=== PATIENT | male | born 1960 | race Caucasian/White ===

== ENCOUNTER 2019-07-16 05:59 | Outpatient (RCR) | payer BC, SELFPAY | END 2019-07-28 00:01 | LOC: ONCMED 05:59 | PROVIDERS: Family Provider Nurse Practitioner Family; Visit Provider Nurse Practitioner | DX: Z51.11 Encounter for antineoplastic chemotherapy (principal); Z51.12 Encounter for antineoplastic immunotherapy; C83.31 Diffuse large B-cell lymphoma, lymph nodes of head, face, and neck; D70.1 Agranulocytosis secondary to cancer chemotherapy; T45.1X5A Adverse effect of antineoplastic and immunosuppressive drugs, initial encounter; I10 Essential (primary) hypertension; M19.90 Unspecified osteoarthritis, unspecified site; Z87.442 Personal history of urinary calculi; F17.210 Nicotine dependence, cigarettes, uncomplicated; K21.9 Gastro-esophageal reflux disease without esophagitis; Z86.718 Personal history of other venous thrombosis and embolism; Z98.1 Arthrodesis status; Z79.01 Long term (current) use of anticoagulants; Z79.52 Long term (current) use of systemic steroids | CPT/HCPCS: 96367; 96368; 96372; 96411; 96413; 96415; 96417; 99214; J1100; J1453; J1642; J2469; J2505; J7040 ×2; J9000; J9070 ×2; J9312 ×2; J9370 ==

== ENCOUNTER 2019-08-14 06:07 | Day surgery (SDC) | payer BC, SELFPAY ==
[2019-08-14 06:38] VITALS: BMI 31.4
--- NOTE | 2019-08-14 06:48 | ANES.PREANES ---
Pre-Anesthetic Assessment Pre-Anesthetic Assessment: Height/Weight: Height 1.68 m Weight 88.451 kg Preop Diagnosis: Right paratracheal mass Proposed Procedure: Operation Date: 08/14/19 07:00 Proposed Procedures p Bronchoscopy(Not Applicable) - Blayne Valdez MD s Ebus(Not Applicable) - Blayne Valdez MD Last intake: Intake Last Liquid Date 08/17/19 Last Liquid Time 21:00 Last Solid Date 08/13/19 Last Solid Time 21:00 Social: Packs per day: 2 ppd44 years Comment: quit 1 week Exam: Pre-Anes Outpt Exam: alert, oriented x 3, clear to auscultation bilaterally and regular rate & rhythm Pulmonary: Pulmonary: COPD CV/HEM: CV/HEM: HTN Comments: rx'd x 10 years GI: GI: GERD Comments: well controlled Anesthetic Plan: ASA status: III Anesthesia: General PFS Anesthesia PFSH: Medical History (Updated 08/06/19 @ 11:33 by Blayne Valdez MD) KRISTIN (acute kidney injury) (Acute) Atrioventricular block, first degree (Acute) Essential (primary) hypertension (Acute) Lymphadenopathy (Acute) Lymphoma (Acute) Neck mass (Acute) Presence of other vascular implants and grafts (Acute) Port-A-Cath Surgical History (Updated 08/06/19 @ 11:33 by Blayne Valdez MD) H/O circumcision (Acute) H/O hand surgery (Acute) H/O neck surgery (Acute) H/O oral surgery (Acute) History of back surgery (Acute) Hx of colonoscopy (Acute) Social History Smoking and tobacco status: current every day smoker cigarettes Years cigarettes smoked: 40 Alcohol intake: never Lives independently: Yes Household members: spouse Marital status: Current occupational status: retired History of recent travel: No Current gender identity: Male Agree to transfusion: Yes Data Anesthesia Cardiac Studies: No Data to Display
[2019-08-14 06:56] VITALS: BP 141/80; PULSE 67; RESP 18; TEMP 36.6; O2SAT 99
[2019-08-14] MEDS: sodium chloride 0.9% 1,000 ML 30 ML IV (07:07)
--- NOTE | 2019-08-14 07:11 | PM.HPUD ---
H&P update H&P Update: DATE OF SURGERY/PROCEDURE: 08/14/19 DATE H&P PERFORMED: 08/14/19 PLANNED PROCEDURE: Operation Date: 08/14/19 07:00 Proposed Procedures p Bronchoscopy(Not Applicable) - Blayne Valdez MD s Ebus(Not Applicable) - Blayne Valdez MD Full H&P HPI: PLANNED PROCEDURE: Bronchoscopy with inspection of airway. Endobronchial ultrasound-guided transbronchial needle aspiration of lymph nodes. HPI: I have reviewed the HPI. There is no significant change since he was last seen in office. Medications/Allergies: Current Medications: Current Medications Generic Name Dose Route Start Last Admin Trade Name Freq PRN Reason Stop Dose Admin Sodium Chloride 1,000 mls @ 30 ml s/hr 08/14/19 07:00 08/14/19 07:07 Sodium Chloride 0.9% IV 08/15/19 06:59 30 mls/hr .Q24H SWATHI Administration Perinent History: Medical/Surgical History: Medical History (Updated 08/06/19 @ 11:33 by Blayne Valdez MD) KRISTIN (acute kidney injury) (Acute) Atrioventricular block, first degree (Acute) Essential (primary) hypertension (Acute) Lymphadenopathy (Acute) Lymphoma (Acute) Neck mass (Acute) Presence of other vascular implants and grafts (Acute) Port-A-Cath Family History: Family History (Updated 08/06/19 @ 11:02 by Juju So LPN) Father Cancer Social History: Social History Smoking and tobacco status: current every day smoker cigarettes Years cigarettes smoked: 40 Alcohol intake: never Lives independently: Yes Household members: spouse Marital status: Current occupational status: retired History of recent travel: No Current gender identity: Male Agree to transfusion: Yes A&P Assessment and plan (1) Lymphadenopathy: The patient has 4R lymphadenopathy with hypermetabolic activity on PET scan. The plan is to do an endobronchial ultrasound-guided transbronchial needle aspiration of the lymph node. Status: Acute Code(s): R59.1 - Generalized enlarged lymph nodes
[2019-08-14] MEDS: lidocaine 1% INJ 20 mL XX (07:40)
[2019-08-14] MEDS: EPINEPHrine 1 mg/mL INJ XX (07:50)
--- NOTE | 2019-08-14 08:15 | PM.OP ---
Operative Report Date of procedure: 08/14/19 Pre-op Diagnosis: Right paratracheal mass Procedure: Name of the procedure: Bronchoscopy with inspection of the airway, endobronchial biopsy, endobronchial ultrasound-guided transbronchial needle aspiration of lymph nodes. Indication: Right paratracheal mass with hypermetabolic PET scan Anesthesia: General anesthesia Description of the procedure: The patient was brought to the OR and was intubated for general anesthesia. Timeout was performed. The bronchoscope was introduced through the ET tube. The lashanda, right and left mainstem bronchi anesthetized with 1% lidocaine. The lashanda appeared sharp. In a systematic way then the bilateral lung airways were examined. The airways of the left upper lobe, lingula and left lower lobe appeared normal. The right upper lobe airway was normal, right lower lobe airways were normal. There was an smooth circular endobronchial lesion in the medial segment of the right middle lobe. 2 endobronchial biopsies were performed. The endobronchial ultrasound was then advanced through the ET tube. The 4R station was identified. 7 samples are obtained from the 4 nuclear station using endobronchial ultrasound-guided transbronchial needle aspiration. Samples: 1. The endobronchial lesion was sent for histopathology. 2. The transbronchial needle aspiration was sent for cytology and fungal and mycobacterial culture. Complication: None Follow-up: The patient will follow-up with me in 2 weeks time. He already has an appointment.
[2019-08-14 08:19] VITALS: BP 129/85; PULSE 89; RESP 16; TEMP 36.3; O2SAT 100
[2019-08-14 08:25] VITALS: BP 138/83; PULSE 90; RESP 16; O2SAT 100
[2019-08-14 08:30] VITALS: BP 125/79; PULSE 86; RESP 18; TEMP 36.4; O2SAT 96
[2019-08-14 09:04] VITALS: BP 125/79; PULSE 72; RESP 18; O2SAT 97
== END 2019-08-14 09:15 | disposition home or self-care (01) ==
PROVIDERS: Family Provider Nurse Practitioner Family; PCP Nurse Practitioner Family; Visit Provider Internal Medicine Critical Care Medicine
PROC: 0BJ08ZZ Inspection of Tracheobronchial Tree, Via Natural or Artificial Opening Endoscopic (ICD-10-PCS; CPT 31622; principal; 2019-08-14 07:00)
PROC: BB4BZZZ Ultrasonography of Pleura (ICD-10-PCS; CPT 31625; 2019-08-14 07:00)
DX: R91.8 Other nonspecific abnormal finding of lung field (principal); R59.1 Generalized enlarged lymph nodes; J44.9 Chronic obstructive pulmonary disease, unspecified; I10 Essential (primary) hypertension; K21.9 Gastro-esophageal reflux disease without esophagitis; F17.210 Nicotine dependence, cigarettes, uncomplicated
CPT/HCPCS: 31625; 12345; 88112; 88305; 96365; J0171; J2001; J2405; J2704; J2710; J3490; J7030

== ENCOUNTER 2019-08-21 09:16 | Outpatient (CLI) | payer BC, SELFPAY ==
--- NOTE | 2019-08-23 10:27 | ONC FU_ITS ---
Dr. Mendoza Patient Follow-Up Note Patient: Laith Cline Unit #: [id number]: [id number] Dicatated By: Roger Mendoza M.D.Date of Visit:Aug 21, 2019 Onc Med Follow-up/Prog Note Chief Complaint: Lymphoma. History of Present Illness: This is a 58 year-old man with diffuse large B-cell lymphoma, non-germinal center phenotype, stage IIIS by clinical evaluation. He had presented with enlarging masses on both sides of the neck. 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 He was referred to Dr. Panchal. He had nondiagnostic FNA and core needle biopsies. PET/CT on 02/07/2019 showed extensive hypermetabolic head and neck adenopathy with maximum SUV 27.7, felt to likely represent lymphoma. Also noted was hypermetabolic adenoid and tonsillar tissue, consistent with lymphoma this involvement, and a splenic lesion consistent with extranodal disease. He underwent incisional biopsy of the right cervical lymph node on 03/03/2019. Pathology was consistent with diffuse large B-cell lymphoma, non-germinal center phenotype. By immunoperoxidase the lymphoma cells were positive for CD20, CD5, BL 6, MUM 1, BCL-2. MYC was positive at 20-30%, and CARLA was equivocal with very rare positive cells. They were negative for CD3, CD10, cyclin D1, and Sox 11. With those findings he was recommended not undergo treatment with 6 cycles of R-CHOP chemotherapy. His other medical illnesses include hypertension, degenerative disease of the spine, and nephrolithiasis. He also was previously treated for Sullivan spotted fever. He has a history of smoking for 40 years, previously up to 2 1/2 packs of cigarettes daily. He had cut down to 1/2 pack per day. INTERIM HISTORY: He began treatment with R-CHOP chemotherapy, cycle 1 day 1 on 03/19/2019. He was given first cycle prophylaxis with Neulasta. He developed acute onset of lower extremity edema immediately following that treatment, but that subsequently resolved, and he otherwise tolerated it very well. He was seen for a follow-up visit on 04/09/2019. At that point he appeared to have a very good clinical response, and he continued with his 2nd cycle of treatment. On 04/23/2019 he presented with significant swelling in the left arm, and he was confirmed to have a Port-A-Cath related deep vein thrombosis at the left jugular/subclavian junction. He began anticoagulation with apixaban, and he underwent removal of the Port-A-Cath. He continued the apixaban following the procedure. Restaging PET/CT on 04/25/2019 showed resolution of hypermetabolic adenopathy in the head and neck. Residual nodes were noted to be subcentimeter in size and FDG negative. The splenic lesion seen on the prior study was noted to demonstrate activity no greater than mediastinal background. It measured 3.3 x 2.5 cm. Bilateral tonsillar activity was noted to have normalized. 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 He then had a short treatment delay while he underwent replacement of the Port-A-Cath. He was able to continue with cycle 3 of R-CHOP on 05/07/2019, with cycle 4 on 06/04/2019, with cycle 5 on 06/24/2019, and with cycle 6 on 07/16/2019. Restaging PET/CT showed increased SUV and a right paratracheal lymph node to 7.8 compared to 4.9 on the previous study. Residual lymphoma was not excluded. There were no other areas of abnormal uptake on that study. With that finding he was referred to Dr. Valdez. On 08/04/2019 he underwent bronchoscopy/EBUS with FNA biopsy of the right paratracheal lymph node. Also noted at that time was a smooth circular endobronchial lesion in the medial segment of the right middle lobe. That lesion was evaluated with endobronchial biopsy. He is seen today to discuss the biopsy results. We do have the pathology report available on the endobronchial biopsy, and that it showed benign respiratory mucosa and cartilage with no malignancy identified. The FNA biopsy was sent up to [facility], and that result is not yet available. Medications: dilTIAZem HCl 1 Tablet (of 120 mg) Oral daily, Eliquis 1 Tablet (of 5 mg) Oral b.i.d., levoFLOXacin 1 Tablet (of 500 mg) Oral daily for 5 days PRN, LORazepam 1 Tablet (of 0.5 mg) Oral t.i.d. PRN, Pantoprazole Sodium 1 Tablet (of 40 mg) Tablet, enteric coated Oral daily, Prochlorperazine Maleate 1 Tablet (of 10 mg) Oral q 4 hours PRN Allergies: No Known Allergies. Vital Signs: Performed on Aug 21, 2019 09:28 Height - 65.00 in Weight - 196.6 lbs (HIGH) BSA - 1.96 sq.m BMI - 32.72 (HIGH) Temperature - 98.3 F (LOW) Pulse - 88 /min Respiration - 20 /min BP - 111/84 mm(hg) O2 Sat - 97 % Pain - 0 Lab/Imaging: Test performed on Aug 11, 2019 08:48 Glucose 109 mg/dL BUN 14 mg/dL Creatinine 1.19 mg/dL Cr Clearance (Est) 79.96 mL/min Sodium 137 mmol/L Potassium 3.9 mmol/L Chloride 101 mmol/L CO2 24 mmol/L Calcium 9.6 mg/dL Protein, Total 7.4 g/dL Albumin 4.1 g/dL Bilirubin, Total 0.3 mg/dL Alkaline Phosphatase 77 IU/L AST (SGOT) 18 IU/L ALT (SGPT) 16 IU/L WBC 6.1 10^9/L RBC 4.19 10^12/L HGB 12.9 g/dL HCT 39.3 % MCV 93.8 fl MCH 30.8 pg MCHC 32.8 g/dL RDW 15.4 % Platelet Count 276 10^9/L MPV 8.9 fL Neutrophils (Gran) 4.15 10^9/L Lymphocytes 0.95 10^9/L Monocytes 0.85 10^9/L Eosinophils 0.07 10^9/L Basophils 0.02 10^9/L Manual Lymphocytes 16 % Manual Monocytes 14 % Manual Eosinophils 1 % Manual Basophils 0 % Impression: 1. Patient with diffuse large B-cell lymphoma, non-germinal center phenotype. By clinical evaluation, his disease appears to be stage IIIS. 2. He was diagnosed with Sullivan spotted fever in October or November 2018. His other medical illnesses include: 3. Hypertension, but currently with episodes of orthostatic hypotension. 4. GERD. 5. History of nephrolithiasis. He underwent treatment with 6 cycles of R-CHOP chemotherapy from 03/19/2019 through 07/16/2019. His treatment was complicated by a Port-A-Cath related thrombosis involving the left subclavian/internal jugular veins during cycle 2. He began on anticoagulation with apixaban following removal of the Port-A-Cath. His restaging PET/CT showed findings which appeared consistent with complete response. He had a short treatment delay while he underwent replacement of his Port-A-Cath. His treatment was otherwise complicated by neutropenia and fatigue. Overall, though, he tolerated it well. His restaging PET/CT on 07/25/2019 showed increased SUV to 7.8 compared to 4.9 on the previous study. Active lymphoma was not excluded. There were no other areas of abnormal uptake. He underwent bronchoscopy/EBUS with FNA of the right paratracheal lymph node on 08/14/2019. The pathology is not yet available. Plan: At this point he appears to be doing well clinically. The available pathology results were reviewed with the patient and his , and we also reviewed the PET/CT findings and images. I will plan his further management when the pathology results from the FNA biopsy are available. If it is benign, he will just be followed on observation/expectant management. Signed By: Roger Mendoza M.D. <<Signature on File>>
== END 2019-08-21 09:17 | disposition home or self-care (01) ==
LOC: ONCMED 09:18
PROVIDERS: Family Provider Nurse Practitioner Family; PCP Nurse Practitioner Family; Visit Provider Internal Medicine Medical Oncology
DX: C83.31 Diffuse large B-cell lymphoma, lymph nodes of head, face, and neck (principal); I10 Essential (primary) hypertension; M19.90 Unspecified osteoarthritis, unspecified site; F17.210 Nicotine dependence, cigarettes, uncomplicated; I95.9 Hypotension, unspecified; K21.9 Gastro-esophageal reflux disease without esophagitis; Z79.01 Long term (current) use of anticoagulants; Z92.21 Personal history of antineoplastic chemotherapy; Z86.718 Personal history of other venous thrombosis and embolism; Z87.442 Personal history of urinary calculi
CPT/HCPCS: G0463

== ENCOUNTER 2019-09-24 09:47 | Outpatient (CLI) | payer BC, SELFPAY ==
[2019-09-24 10:10] VITALS: BP 134/90; PULSE 71; RESP 20; TEMP 36.7; O2SAT 97; BMI 34.0
== END 2019-09-24 09:48 | disposition home or self-care (01) ==
LOC: GILAB 09:51
PROVIDERS: Family Provider Nurse Practitioner Family; PCP Nurse Practitioner Family; Visit Provider Surgery
DX: R59.1 Generalized enlarged lymph nodes (principal)
CPT/HCPCS: 96368; J1642

== ENCOUNTER 2019-09-25 08:57 | Outpatient (CLI) | payer BC, SELFPAY ==
--- NOTE | 2019-09-25 09:06 | MM_ITS ---
WS: [id number] BILATERAL DIGITAL DIAGNOSTIC MAMMOGRAPHY WITH CAD CLINICAL INFORMATION: BREAST MASS COMPARISON: None. TECHNIQUE: Bilateral CC and MLO views. FINDINGS: Scattered fibroglandular densities bilaterally. Prominent subareolar breast tissue deep to the left a shante left. This is asymmetric compared to the right. Small amount of right subareolar breast tissue. U ltrasound is pending. ULTRASOUND BREAST LEFT TECHNIQUE: Ultrasound left breast focused area of concern. CLINICAL INFORMATION: BREAST MASS COMPARISON: None. FINDINGS: Ultrasound left breast. Right areola for comparison. Density subareolar breast tissue asymmetric more prominent on the left. Findings are most consistent with gynecomastia. No well-defined cystic or ami id lesions to target for biopsy. MM/[place] [id number] BI-RADS: 2-Benign FOLLOW UP: See Report Additional management of the palpable abnormality should be based on clinical g rounds.
== END 2019-09-25 08:58 | disposition home or self-care (01) ==
LOC: RADSHAW 08:57
PROVIDERS: Family Provider Nurse Practitioner Family; PCP Nurse Practitioner Family; Visit Provider Nurse Practitioner Family
DX: N63.42 Unspecified lump in left breast, subareolar (principal)
CPT/HCPCS: 76642; 77066

== ENCOUNTER 2019-10-20 07:55 | Outpatient (CLI) | payer BC, SELFPAY | END 2019-10-20 07:56 | disposition home or self-care (01) | LOC: ONCMED 07:56 | PROVIDERS: Family Provider Nurse Practitioner Family; PCP Nurse Practitioner Family; Visit Provider Internal Medicine Medical Oncology | DX: Z45.2 Encounter for adjustment and management of vascular access device (principal) | CPT/HCPCS: 96523 ==

== ENCOUNTER 2019-11-13 09:16 | Outpatient (CLI) | payer BC, SELFPAY | END 2019-11-13 09:17 | disposition home or self-care (01) | LOC: ONCMED 09:16 | PROVIDERS: Family Provider Nurse Practitioner Family; PCP Nurse Practitioner Family; Visit Provider Internal Medicine Medical Oncology | DX: Z45.2 Encounter for adjustment and management of vascular access device (principal) | CPT/HCPCS: 96523 ==

== ENCOUNTER 2019-12-01 08:24 | Outpatient (CLI) | payer BC, SELFPAY ==
--- NOTE | 2019-12-01 08:47 | CT_ITS ---
WS: [id number] CT NECK WITH CONTRAST HISTORY: LYMPHOMA TECHNIQUE: Contiguous 5 mm axial images are performed through the neck with intravenous contrast. Sag ittal and coronal reformats are also submitted. All CT scans at [facility] use at least o ne of these dose optimization techniques: automated exposure control; mA and/or kV adjustment per pat ient size (includes targeted exams where dose is matched to clinical indication); or iterative recons truction. CONTRAST: CONTRAST: Omnipaque 300; 95 mL IV. DLP: 2874.25 mGycm COMPARISON: 02/04/2019 and PET/CT 07/25/2019 Nasopharynx, oropharynx, hypopharynx and larynx are unremarkable. No soft tissue masses or abnormal e nhancement. Torus tubarius and fossa of Rosenmuller and parapharyngeal fat are normal. There are several small lymph nodes noted along the cervical chains, greatest at level IIb, IVb and V b. There are lymph nodes noted bilaterally in the soft tissues posterior to the sternocleidomastoid m uscles and the jugular veins. Lymph nodes all measure less than a centimeter. Although these lymph no lm are not significantly enlarged there are numerous and appear more prominent as compared to the PE T/CT of 07/25/2019. Smaller level IIa lymph node on the LEFT is 7 mm. Stable enhancing nodule in the RIGHT parotid gland is probably a benign adenoma or Jayce's tumor th is has been previously described. Prior cervical fusion at C5-C7. Visualized portions of the skull base demonstrate no abnormalities. Orbits and globes are within norm al limits. No soft tissue masses. Visualized paranasal sinuses and mastoid air cells are normal. Lung apices are clear. Calcified lymph nodes in the RIGHT paratracheal region. Recently described PET /CT positive lymph node measures 7 mm in the RIGHT paratracheal region. CT/CT neck w con* [id number] IMPRESSION: 1. Several small bilateral cervical chain lymph nodes as described above are a ll subcentimeter. These lymph nodes are more prominent as compared to the PET/C T from 07/25/2019. Early recurrence lymphoma should be considered. No significa ntly enlarged lymph nodes. 2. Postsurgical clips in the RIGHT neck probably from prior lymph node removal .
[2019-12-01] MEDS: iohexol 300 mg/mL 100 mL Btl IV (09:20)
[2019-12-01 10:02] LABS: Basophils % 0.1 %; Eosinophils # 0.1 10^3/uL (0.0-0.8); Eosinophils % 1.3 %; Hematocrit 41.5 % (42.0-52.0); Hemoglobin 13.5 g/dL (11.7-16.6); Lymphocytes # 1.2 10^3/uL (0.8-4.8); Lymphocytes % 16.9 %; Mean Corpuscular HGB Conc 32.5 g/dL (30.0-36.0); Mean Corpuscular Hemoglobin 30.6 pg (28.0-34.0); Mean Corpuscular Volume 94.1 fL (80-94); Mean Platelet Volume 9.9 fL (7.4-10.4); Monocytes # 0.6 10^3/uL (0.2-0.9); Monocytes % 8.2 %; Neutrophils # 5.3 10^3/uL (1.8-7.7); Neutrophils % 73.2 %; Nucleated Red Blood Cells % 0 %; Platelet Count 200 10^3/cmm (130-400); Red Blood Count 4.41 10^6/uL (4.1-5.3); Red Cell Distribution Width 13.2 % (12.1-15.1); White Blood Count 7.2 10^3/uL (4.0-10.0)
[2019-12-01 10:18] LABS: Alanine Aminotransferase 16 U/L (0-41); Alkaline Phosphatase 95 IU/L (40-130); Anion Gap 12.3 (5-19); Aspartate Amino Transferase 16 U/L (0-40); Blood Urea Nitrogen 15 mg/dL (6-20); Calcium 9.3 mg/dL (8.5-10.5); Carbon Dioxide 27 mmol/L (22-29); Chloride 105 mmol/L (98-107); Globulin 3.1 g/dL (1.3-4.6); Glomerular Filtration Rate 68.5 mL/min (90-130); Glucose 99 mg/dL (65-115); Lactate Dehydrogenase 180 U/L (135-225); Osmolality Calculated 286 mOsm/kg (285-295); Potassium 4.3 mmol/L (3.5-5.1); Sodium 140 mmol/L (136-145); Total Bilirubin 0.3 mg/dL (0.15-1.2); Total Protein 7.1 g/dL (6.6-8.7)
== END 2019-12-01 08:25 | disposition home or self-care (01) ==
LOC: RADWPI 08:27 → ONCMED 09:49
PROVIDERS: Family Provider Nurse Practitioner Family; PCP Nurse Practitioner Family; Visit Provider Internal Medicine Medical Oncology
DX: C83.31 Diffuse large B-cell lymphoma, lymph nodes of head, face, and neck (principal); I82.B12 Acute embolism and thrombosis of left subclavian vein; I82.C12 Acute embolism and thrombosis of left internal jugular vein; D70.2 Other drug-induced agranulocytosis
CPT/HCPCS: 36415; 70491; 80053; 83615; 85025; Q9967

== ENCOUNTER 2019-12-03 08:43 | Outpatient (CLI) | payer BC, SELFPAY ==
--- NOTE | 2019-12-06 12:21 | ONC FU_ITS ---
Dr. Mendoza Patient Follow-Up Note Patient: Laith Cline Unit #: [id number]: [id number] Dicatated By: Roger Mendoza M.D.Date of Visit:December 03, 2019 Onc Med Follow-up/Prog Note Chief Complaint: Lymphoma. History of Present Illness: This is a 59 year-old man with diffuse large B-cell lymphoma, non-germinal center phenotype, stage IIIS by clinical evaluation. He had presented with enlarging masses on both sides of the neck. He first became aware of it and October or November, following an illness which was diagnosed as [place] spotted fever. He was referred to Dr. Panchal. He had nondiagnostic FNA and core needle biopsies. PET/CT on 02/07/2019 showed extensive hypermetabolic head and neck adenopathy with maximum SUV 27.7, felt to likely represent lymphoma. Also noted was hypermetabolic adenoid and tonsillar tissue, consistent with lymphoma this involvement, and a splenic lesion consistent with extranodal disease. He underwent incisional biopsy of the right cervical lymph node on 03/03/2019. Pathology was consistent with diffuse large B-cell lymphoma, non-germinal center phenotype. By immunoperoxidase the lymphoma cells were positive for CD20, CD5, BL 6, MUM 1, BCL-2. MYC was positive at 20-30%, and CARLA was equivocal with very rare positive cells. They were negative for CD3, CD10, cyclin D1, and Sox 11. With those findings he was recommended not undergo treatment with 6 cycles of R-CHOP chemotherapy. He began treatment with R-CHOP chemotherapy, cycle 1 day 1 on 03/19/2019. He was given first cycle prophylaxis with Neulasta. He developed acute onset of lower extremity edema immediately following that treatment, but that subsequently resolved, and he otherwise tolerated it very well. He was seen for a follow-up visit on 04/09/2019. At that point he appeared to have a very good clinical response, and he continued with his 2nd cycle of treatment. On 04/23/2019 he presented with significant swelling in the left arm, and he was confirmed to have a Port-A-Cath related deep vein thrombosis at the left jugular/subclavian junction. He began anticoagulation with apixaban, and he underwent removal of the Port-A-Cath. He continued the apixaban following the procedure. Restaging PET/CT on 04/25/2019 showed resolution of hypermetabolic adenopathy in the head and neck. Residual nodes were noted to be subcentimeter in size and FDG negative. The splenic lesion seen on the prior study was noted to demonstrate activity no greater than mediastinal background. It measured 3.3 x 2.5 cm. Bilateral tonsillar activity was noted to have normalized. 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 He then had a short treatment delay while he underwent replacement of the Port-A-Cath. He then continued with cycle 3 of R-CHOP on 05/07/2019, with cycle 4 on 06/04/2019, with cycle 5 on 06/24/2019, and with cycle 6 on 07/16/2019. Restaging PET/CT showed increased SUV and a right paratracheal lymph node to 7.8 compared to 4.9 on the previous study. Residual lymphoma was not excluded. There were no other areas of abnormal uptake on that study. With that finding he was referred to Dr. Valdez. On 08/04/2019 he underwent bronchoscopy/EBUS with FNA biopsy of the right paratracheal lymph node. Also noted at that time was a smooth circular endobronchial lesion in the medial segment of the right middle lobe. That lesion was evaluated with endobronchial biopsy. Pathology showed benign respiratory mucosa and cartilage with no malignancy identified. The FNA biopsy was sent up to [facility], and it also was negative for malignancy. His other medical illnesses include hypertension, degenerative disease of the spine, and nephrolithiasis. He also was previously treated for [place] spotted fever. He has a history of smoking for 40 years, previously up to 2 1/2 packs of cigarettes daily. He had cut down to 1/2 pack per day. INTERIM HISTORY: Surveillance neck CT on 12/01/2019 showed several small bilateral cervical chain lymph nodes, all subcentimeter. These appeared slightly more prominent compared to the PET/CT from June 2019. Early recurrence of lymphoma was not excluded. There were no significantly enlarged lymph nodes noted. He is seen for a follow-up visit. He has been feeling good generally. His only significant complaint is that his been having pain in his left breast. Diagnostic mammogram and ultrasound of the left breast on 09/25/2019 were unrevealing. He has good energy and activity tolerance. ECOG score is 0. Appetite also is good. His weight is stable. He has no fever or night sweats. He does not complain of shortness of breath or cough. He otherwise has not had any chest pain. He has no GI or complaints. He has no significant joint or bone pain. He has no residual neuropathy symptoms. Medications: dilTIAZem HCl 1 Tablet (of 120 mg) Oral daily, Eliquis 1 Tablet (of 5 mg) Oral b.i.d., LORazepam 1 Tablet (of 0.5 mg) Oral t.i.d. PRN, Pantoprazole Sodium 1 Tablet (of 40 mg) Tablet, enteric coated Oral daily, Prochlorperazine Maleate 1 Tablet (of 10 mg) Oral q 4 hours PRN Allergies: No Known Allergies. Review of Systems: Constitutional - He has good energy, and he is back to normal activity. Appetite is good and weight is stable. He has no fever or night sweats. ECOG score is 0, ENMT - He has occasional sinus drainage, attributable to allergies. No mouth sores. No sore throat or difficulty swallowing, Hematologic/Lymphatic - He has some bruising, Breasts - He has been having pain in his left breast, worse at night, Respiratory - No shortness of breath. No cough. No pleuritic pain or hemoptysis, Cardiovascular - No angina pain. No palpitations, Gastrointestinal - No nausea or vomiting. No heartburn or acid reflux. No diarrhea or constipation. No blood in the stool or black stools, Genitourinary (M) - No dysuria or hematuria. No urinary frequency. No urgency or incontinence, Musculoskeletal - No significant joint or bone pain, Integumentary - No skin complications, Neurologic - No headache or dizziness. No numbness/paresthesias or other focal neurologic symptoms, Psychiatric - No anxiety or depression. No insomnia. Vital Signs: Performed on December 03, 2019 08:50 Height - 65.00 in Weight - 202.6 lbs (HIGH) BSA - 1.99 sq.m BMI - 33.71 (HIGH) Temperature - 98.7 F Pulse - 79 /min Respiration - 18 /min BP - 147/78 mm(hg) (HIGH) O2 Sat - 97 % Pain - 0 Physical Examination: Constitutional - He looks good generally, Eyes - Sclerae nonicteric. Conjunctivae clear, ENMT - No lesions noted in the oral cavity, Neck - No mass or thyromegaly, Hematologic/Lymphatic - I do not feel any cervical, clavicular, or axillary adenopathy, Respiratory - Lungs are clear with some decrease in air movement bilaterally, Cardiovascular - Heart rhythm is regular. There is no murmur, gallop, or rub noted, Breasts - There is a tiny nodule palpable in the lateral aspect of the subareolar left breast, Abdomen - Soft and non-tender. Liver and spleen are not enlarged. There is no abdominal mass or ascites noted and there is no inguinal adenopathy, Extremities - No edema, Neurologic - No focal neurologic deficits noted. Lab/Imaging: Test performed on December 01, 2019 09:57 LDH (Total) 180 U/L Sodium 140 mmol/L Potassium 4.3 mmol/L Chloride 105 mmol/L CO2 27 mmol/L Anion Gap 12.3 BUN 15 mg/dL Creatinine 1.1 mg/dL Cr Clearance (Est) 85.4500 mL/min eGFR 68.5 mL/min Glucose 99 mg/dL Calcium 9.3 mg/dL Protein, Total 7.1 g/dL Albumin 4.0 g/dL Globulin 3.1 g/dL Bilirubin, Total 0.3 mg/dL ALT (SGPT) 16 U/L AST (SGOT) 16 U/L Alkaline Phosphatase 95 IU/L WBC 7.2 10 3/uL RBC 4.41 10 6/uL HGB 13.5 g/dL HCT 41.5 % MCV 94.1 fL MCH 30.6 pg MCHC 32.5 g/dL RDW 13.2 % Platelet Count 200 10 3/cmm MPV 9.9 fL Neutrophils 5.3 10 3/uL Lymphocytes 1.2 10 3/uL Monocytes 0.6 10 3/uL Eosinophils 0.1 10 3/uL Basophils 0.0 10 3/uL Neutrophil % 73.2 % Lymphocyte % 16.9 % Monocyte % 8.2 % Eosinophil % 1.3 % Basophils % 0.1 % Impression: 1. Patient with diffuse large B-cell lymphoma, non-germinal center phenotype. By clinical evaluation, his disease appears to be stage IIIS. 2. He was diagnosed with [place] spotted fever in October or November 2018. His other medical illnesses include: 3. Hypertension, but currently with episodes of orthostatic hypotension. 4. GERD. 5. History of nephrolithiasis. He underwent treatment with 6 cycles of R-CHOP chemotherapy from 03/19/2019 through 07/16/2019. His treatment was complicated by a Port-A-Cath related thrombosis involving the left subclavian/internal jugular veins during cycle 2. He began on anticoagulation with apixaban following removal of the Port-A-Cath. His restaging PET/CT showed findings which appeared consistent with complete response. He had a short treatment delay while he underwent replacement of his Port-A-Cath. His treatment was otherwise complicated by neutropenia and fatigue. Overall, though, he tolerated it well. His restaging PET/CT on 07/25/2019 showed increased SUV to 7.8 compared to 4.9 on the previous study. Active lymphoma was not excluded. There were no other areas of abnormal uptake. He underwent bronchoscopy/EBUS with FNA of the right paratracheal lymph node on 08/14/2019. Cytology was negative for malignancy. He has since then been followed on observation/expectant management. He has had good recovery from the chemotherapy. His only significant complaint is that he has been having pain in his left breast. On exam he does have a small nodule palpable in the subareolar area laterally. The significance is uncertain. His diagnostic mammogram and ultrasound were unrevealing. His current neck CT does show subcentimeter cervical chain lymph nodes bilaterally, significance of which is also uncertain. Overall, though, he appears to be doing well clinically. Plan: He remains on observation/expectant management. I will plan to review the mammogram/ultrasound studies with the radiologist. I will otherwise just plan a follow-up visit with surveillance CT scans in 3 months. Signed By: Roger Mendoza M.D. <<Signature on File>>
== END 2019-12-03 08:44 | disposition home or self-care (01) ==
LOC: ONCMED 08:44
PROVIDERS: PCP Nurse Practitioner Family; Visit Provider Internal Medicine Medical Oncology
DX: Z45.2 Encounter for adjustment and management of vascular access device (principal); C83.31 Diffuse large B-cell lymphoma, lymph nodes of head, face, and neck; I10 Essential (primary) hypertension; I95.1 Orthostatic hypotension; K21.9 Gastro-esophageal reflux disease without esophagitis; N20.0 Calculus of kidney; D24.2 Benign neoplasm of left breast; N64.4 Mastodynia; Z92.21 Personal history of antineoplastic chemotherapy; Z79.899 Other long term (current) drug therapy
CPT/HCPCS: 96523; 99214

== ENCOUNTER 2020-01-01 08:33 | Outpatient (CLI) | payer BC, SELFPAY | END 2020-01-01 08:34 | disposition home or self-care (01) | LOC: ONCMED 08:35 | PROVIDERS: PCP Nurse Practitioner Family; Visit Provider Internal Medicine Medical Oncology | DX: Z45.2 Encounter for adjustment and management of vascular access device (principal); I82.B12 Acute embolism and thrombosis of left subclavian vein; I82.C12 Acute embolism and thrombosis of left internal jugular vein; D70.2 Other drug-induced agranulocytosis; C83.31 Diffuse large B-cell lymphoma, lymph nodes of head, face, and neck | CPT/HCPCS: 96523 ==

== ENCOUNTER 2020-02-01 09:13 | Outpatient (CLI) | payer BC, SELFPAY | END 2020-02-01 09:14 | disposition home or self-care (01) | LOC: ONCMED 09:16 | PROVIDERS: PCP Nurse Practitioner Family; Visit Provider Internal Medicine Medical Oncology | DX: Z45.2 Encounter for adjustment and management of vascular access device (principal); C83.31 Diffuse large B-cell lymphoma, lymph nodes of head, face, and neck; D70.2 Other drug-induced agranulocytosis; T45.1X5A Adverse effect of antineoplastic and immunosuppressive drugs, initial encounter | CPT/HCPCS: 96523 ==

== ENCOUNTER 2020-03-08 08:46 | Outpatient (CLI) | payer BC, SELFPAY | END 2020-03-08 08:47 | disposition home or self-care (01) | LOC: ONCMED 08:48 | PROVIDERS: PCP Nurse Practitioner Family; Visit Provider Internal Medicine Medical Oncology | DX: Z45.2 Encounter for adjustment and management of vascular access device (principal) | CPT/HCPCS: 96523 ==

== ENCOUNTER 2020-04-14 08:06 | Outpatient (CLI) | payer BC, SELFPAY ==
--- NOTE | 2020-04-17 08:05 | ONC FU_ITS ---
Dr. Mendoza Patient Follow-Up Note Patient: Laith Cline Unit #: [id number]: 1960 Dicatated By: Roger Mendoza M.D.Date of Visit:Apr 14, 2020 Onc Med Follow-up/Prog Note Chief Complaint: Lymphoma. History of Present Illness: This is a 59 year-old man with diffuse large B-cell lymphoma, non-germinal center phenotype, stage IIIS by clinical evaluation. He had presented with enlarging masses on both sides of the neck. He first became aware of it and October or November, following an illness which was diagnosed as [place] spotted fever. He was referred to Dr. Panchal. He had nondiagnostic FNA and core needle biopsies. PET/CT on 02/07/2019 showed extensive hypermetabolic head and neck adenopathy with maximum SUV 27.7, felt to likely represent lymphoma. Also noted was hypermetabolic adenoid and tonsillar tissue, consistent with lymphoma this involvement, and a splenic lesion consistent with extranodal disease. He underwent incisional biopsy of the right cervical lymph node on 03/03/2019. Pathology was consistent with diffuse large B-cell lymphoma, non-germinal center phenotype. By immunoperoxidase the lymphoma cells were positive for CD20, CD5, BL 6, MUM 1, BCL-2. MYC was positive at 20-30%, and CARLA was equivocal with very rare positive cells. They were negative for CD3, CD10, cyclin D1, and Sox 11. With those findings he was recommended not undergo treatment with 6 cycles of R-CHOP chemotherapy. He began treatment with R-CHOP chemotherapy, cycle 1 day 1 on 03/19/2019. He was given first cycle prophylaxis with Neulasta. He developed acute onset of lower extremity edema immediately following that treatment, but that subsequently resolved, and he otherwise tolerated it very well. He was seen for a follow-up visit on 04/09/2019. At that point he appeared to have a very good clinical response, and he continued with his 2nd cycle of treatment. On 04/23/2019 he presented with significant swelling in the left arm, and he was confirmed to have a Port-A-Cath related deep vein thrombosis at the left jugular/subclavian junction. He began anticoagulation with apixaban, and he underwent removal of the Port-A-Cath. He continued the apixaban following the procedure. Restaging PET/CT on 04/25/2019 showed resolution of hypermetabolic adenopathy in the head and neck. Residual nodes were noted to be subcentimeter in size and FDG negative. The splenic lesion seen on the prior study was noted to demonstrate activity no greater than mediastinal background. It measured 3.3 x 2.5 cm. Bilateral tonsillar activity was noted to have normalized. 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 He then had a short treatment delay while he underwent replacement of the Port-A-Cath. He then continued with cycle 3 of R-CHOP on 05/07/2019, with cycle 4 on 06/04/2019, with cycle 5 on 06/24/2019, and with cycle 6 on 07/16/2019. Restaging PET/CT showed increased SUV and a right paratracheal lymph node to 7.8 compared to 4.9 on the previous study. Residual lymphoma was not excluded. There were no other areas of abnormal uptake on that study. With that finding he was referred to Dr. Valdez. On 08/04/2019 he underwent bronchoscopy/EBUS with FNA biopsy of the right paratracheal lymph node. Also noted at that time was a smooth circular endobronchial lesion in the medial segment of the right middle lobe. That lesion was evaluated with endobronchial biopsy. Pathology showed benign respiratory mucosa and cartilage with no malignancy identified. The FNA biopsy was sent up to [facility], and it also was negative for malignancy. At his subsequent follow-up visit in July 2019 he had reported some tenderness in the left breast. Diagnostic mammogram and ultrasound were unrevealing. He continued on observation/expectant management. His other medical illnesses include hypertension, degenerative disease of the spine, and nephrolithiasis. He also was previously treated for [place] spotted fever. He has a history of smoking for 40 years, previously up to 2 1/2 packs of cigarettes daily. He had cut down to 1/2 pack per day. INTERIM HISTORY: Surveillance neck CT on 12/01/2019 showed several small bilateral cervical chain lymph nodes, all subcentimeter. These appeared slightly more prominent compared to the PET/CT from June 2019. Early recurrence of lymphoma was not excluded. There were no significantly enlarged lymph nodes noted. His repeat PET/CT on 02/27/2020 showed partially calcified right paratracheal lymph node showed SUV decreased to 3.6 compared to 7.8 on the previous PET/CT from June 2019. There was no significant head and neck adenopathy noted. New soft tissue in the left breast measuring 4.4 x 2.4 cm showed mild FDG uptake, SUV 2.5, consistent with inflammatory change. Scarring at the right lung apex was FDG negative and unchanged. He is seen for a follow-up visit. He has been feeling good generally. He occasionally feels tired, and his energy is otherwise good and he has normal activity. ECOG score is 0. He has good appetite. His weight is down a few pounds. He has no fever. He occasionally has night sweating. He says his left breast has been sore for ever. He has some intermittent nonproductive cough. He does not complain of shortness of breath or chest pain. He has no GI or complaints. He has no significant joint or bone pain. He has no focal neurologic symptoms. Medications: dilTIAZem HCl 1 Tablet (of 120 mg) Oral daily, Eliquis 1 Tablet (of 5 mg) Oral b.i.d., LORazepam 1 Tablet (of 0.5 mg) Oral t.i.d. PRN, Pantoprazole Sodium 1 Tablet (of 40 mg) Tablet, enteric coated Oral daily, Prochlorperazine Maleate 1 Tablet (of 10 mg) Oral q 4 hours PRN Allergies: No Known Allergies. Review of Systems: Constitutional - He has been feeling really good generally. His energy is good. He reports a few times a week he does feel more tired. His appetite is good and his weight is down a few pounds. No fevers. He has occasional night sweats. ECOG score is 0, ENMT - No sinus congestion/drainage. No mouth sores. No sore throat or difficulty swallowing, Hematologic/Lymphatic - No abnormal bruising or bleeding, Respiratory - No shortness of breath. He has an intermittent nonproductive cough. No pleuritic pain or hemoptysis, Cardiovascular - No angina pain. No palpitations. He reports tenderness in his left chest wall/ breast area, that has been present for quite some time, Gastrointestinal - No nausea or vomiting. No heartburn or acid reflux. No diarrhea or constipation. No blood in the stool or black stools, Genitourinary (M) - No dysuria or hematuria. No urinary frequency. No urgency or incontinence, Musculoskeletal - No joint or bone pain, Integumentary - No skin complications, Neurologic - No headache or dizziness. No numbness or tingling. No other focal neurologic symptoms, Psychiatric - No anxiety or depression. No insomnia. Vital Signs: Performed on Apr 14, 2020 08:19 Height - 65.00 in Weight - 198.0 lbs (LOW) BSA - 1.97 sq.m BMI - 32.95 (HIGH) Temperature - 98.5 F Pulse - 84 /min Respiration - 24 /min BP - 135/94 mm(hg) O2 Sat - 97 % Pain - 0 Physical Examination: Constitutional - He looks good generally, Eyes - Sclerae nonicteric. Conjunctivae clear, ENMT - No lesions noted in the oral cavity, Hematologic/Lymphatic - There is a small residual nodule on the right side of the neck. There is no other cervical, clavicular, or axillary adenopathy noted, Respiratory - Lungs are clear, Cardiovascular - Heart rhythm is regular. There is no murmur, gallop, or rub noted, Breasts - There is a tiny nodule in the lateral aspect of the left breast, Abdomen - Soft. Liver and spleen are not enlarged. There is no abdominal mass or ascites noted and there is no inguinal adenopathy, Extremities - No edema, Neurologic - No focal neurologic deficits noted. Lab/Imaging: Test performed on Mar 01, 2020 08:34 Glucose 92 mg/dL BUN 20 mg/dL Creatinine 1.11 mg/dL Cr Clearance (Est) 84.68 mL/min Sodium 139 mmol/L Potassium 4.0 mmol/L Chloride 106 mmol/L CO2 25 mmol/L Calcium 9.3 mg/dL Protein, Total 7.0 g/dL Albumin 4.1 g/dL Bilirubin, Total 0.3 mg/dL Alkaline Phosphatase 111 IU/L AST (SGOT) 24 IU/L ALT (SGPT) 25 IU/L WBC 6.5 10^9/L RBC 4.49 10^12/L HGB 14.1 g/dL HCT 41.5 % MCV 92.4 fl MCH 31.4 pg MCHC 34.0 g/dL RDW 13.5 % Platelet Count 211 10^9/L MPV 9.5 fL Neutrophils (Gran) 4.49 10^9/L Lymphocytes 1.28 10^9/L Monocytes 0.65 10^9/L Eosinophils 0.09 10^9/L Basophils 0.01 10^9/L Manual Lymphocytes 69 % Manual Monocytes 20 % Manual Eosinophils 10 % Manual Basophils 1 % Impression: 1. Patient with diffuse large B-cell lymphoma, non-germinal center phenotype. By clinical evaluation, his disease appears to be stage IIIS. 2. He was diagnosed with [place] spotted fever in October or November 2018. His other medical illnesses include: 3. Hypertension, but currently with episodes of orthostatic hypotension. 4. GERD. 5. History of nephrolithiasis. He underwent treatment with 6 cycles of R-CHOP chemotherapy from 03/19/2019 through 07/16/2019. His treatment was complicated by a Port-A-Cath related thrombosis involving the left subclavian/internal jugular veins during cycle 2. He began on anticoagulation with apixaban following removal of the Port-A-Cath. His restaging PET/CT showed findings which appeared consistent with complete response. He had a short treatment delay while he underwent replacement of his Port-A-Cath. His treatment was otherwise complicated by neutropenia and fatigue. Overall, though, he tolerated it well. His restaging PET/CT on 07/25/2019 showed increased SUV to 7.8 compared to 4.9 on the previous study. Active lymphoma was not excluded. There were no other areas of abnormal uptake. He underwent bronchoscopy/EBUS with FNA of the right paratracheal lymph node on 08/14/2019. Cytology was negative for malignancy. He had good recovery from the chemotherapy and he has since then continued on observation/expectant management. He has been doing well clinically. His only significant complaint is that he has had soreness in his left breast. His diagnostic mammogram/ultrasound in August 2019 were unrevealing. His current PET/CT does show an area of soft tissue in the left breast with mild FDG uptake, consistent with inflammatory change. There was no evidence of recurrence of the lymphoma. Plan: He remains on observation/expectant management. He will be scheduled for a follow-up visit in 6 months. At this point I recommended that he go ahead and have his Port-A-Cath removed. I also recommended that he continue anticoagulation for at least a month after the procedure. Signed By: Roger Mendoza M.D. <<Signature on File>>
== END 2020-04-14 08:07 | disposition home or self-care (01) ==
LOC: ONCMED 08:08
PROVIDERS: PCP Nurse Practitioner Family; Visit Provider Internal Medicine Medical Oncology
DX: C83.31 Diffuse large B-cell lymphoma, lymph nodes of head, face, and neck (principal); D70.2 Other drug-induced agranulocytosis; T45.1X5A Adverse effect of antineoplastic and immunosuppressive drugs, initial encounter; I82.B12 Acute embolism and thrombosis of left subclavian vein; I82.C12 Acute embolism and thrombosis of left internal jugular vein; I10 Essential (primary) hypertension; K21.9 Gastro-esophageal reflux disease without esophagitis; Z45.2 Encounter for adjustment and management of vascular access device
CPT/HCPCS: 96523; 99214

== ENCOUNTER 2020-05-04 11:20 | Day surgery (SDC) | payer BC, SELFPAY ==
[2020-05-03 12:07] VITALS: BMI 34.0
[2020-05-04 11:39] VITALS: BP 158/85; PULSE 74; RESP 18; TEMP 36.9; O2SAT 95
[2020-05-04] MEDS: sodium chloride 0.9% 1,000 ML 30 ML IV (11:54)
--- NOTE | 2020-05-04 12:15 | P.ANESASSM_ITS ---
Pre-Anesthetic Assessment Pre-Anesthetic Assessment: Height/Weight: Height 1.63 m Weight 89.811 kg Temp Pulse Resp BP Pulse Ox 98.4 F 74 18 158/85 95 05/04/20 11:39 05/04/20 11:39 05/04/20 11:39 05/04/20 11:39 05/04/20 11:39 Preop Diagnosis: Port-A-Cath removal Proposed Procedure: Operation Date: 05/04/20 13:10 Proposed Procedures p Portacath Removal 23449 c85.90(Not Applicable) - Aaron Tomlinson MD Was Beta Byron taken within 24 hours: N/A Last intake: Intake Last Liquid Date 05/03/20 Last Liquid Time 21:00 Last Solid Date 05/03/20 Last Solid Time 19:30 Social: Social History: Tobacco and No alcohol Exam: Pre-Anes Outpt Exam: alert, oriented x 3, clear to auscultation bilaterally and regular rate & rhythm Airway: Submandibular: WNL Cervical ROM: WNL MP: 2 Dentition: Partials History/ROS: No significant complaints Pulmonary: Pulmonary: None reported CV/HEM: CV/HEM: HTN : : None reported Hepatic: Hepatic: None reported GI: GI: GERD Metabolic: Comments: Lymphoid Cancer Musc/skel: Musc/skel: None reported Neuropsych: Neuropsych: None reported Anesthetic Plan: ASA status: 3 Anesthesia: General Meds/Allergies Current Medications: Current Medications Generic Name Dose Route Start Last Admin Trade Name Freq PRN Reason Stop Dose Admin Sodium Chloride 1,000 mls @ 30 ml s/hr 05/04/20 11:45 05/04/20 11:54 Sodium Chloride 0.9% IV 05/05/20 11:44 30 mls/hr .Q24H SWATHI Administration PFSH Anesthesia PFSH: Medical History KRISTIN (acute kidney injury) Atrioventricular block, first degree Essential (primary) hypertension Lymphoma Presence of other vascular implants and grafts Port-A-Cath Venous thrombosis Surgical History H/O circumcision H/O hand surgery H/O neck surgery H/O oral surgery History of back surgery Hx of colonoscopy Family History Father Cancer Denies family history of Anesthesia complication Bleeding disorder Social History Smoking and tobacco status: current every day smoker cigarettes Years cigarett es smoked: 40 Alcohol intake: never Lives independently: Yes Household members: spouse Marital status: Current occupational status: retired History of recent travel: No Current gender identity: Male Agree to transfusion: Yes Data Anesthesia Cardiac Studies: No Data to Display
--- NOTE | 2020-05-04 12:36 | W.PM.OPSUD ---
Surgery/Procedure H&P Update DATE OF PROCEDURE: May 04, 2020 DATE H&P PERFORMED: 04/22/20 H&P UPDATE INFORMATION: I have reviewed H&P completed within last 30 days, I have examined patient prior to procedure and No changes to prior documentation PREOP DIAGNOSIS: Port-A-Cath removal PLANNED PROCEDURE: Operation Date: 05/04/20 13:10 Proposed Procedures p Portacath Removal 25296 c85.90(Not Applicable) - Aaron Tomlinson MD
[2020-05-04] MEDS: lidocaine 1% INJ 20 mL IM (12:52)
[2020-05-04 13:07] VITALS: BP 109/78; PULSE 71; RESP 18; TEMP 36.4; O2SAT 95
[2020-05-04 13:27] VITALS: BP 125/85; PULSE 61; RESP 18; O2SAT 96
--- NOTE | 2020-05-04 13:52 | P.OP_ITS ---
Operative Report Date of procedure: May 04, 2020 Pre-op Diagnosis: Port-A-Cath removal Post-op diagnosis: same Procedure Done: Removal of PowerPort from the right subclavian vein Specimens removed/disposition: PowerSally Surgeon: Aaron Tomlinson Anesthesia: MAC Estimated blood loss (mL): 5 Condition: stable Disposition: PACU Procedure: Patient was taken to the operating room and her right chest was prepped and draped in a sterile manner. 10 mL of 1% lidocaine with 0.5% Marcaine was infiltrated around the MediPort and catheter in the right subclavian vein. Using a 15 blade the previous incision was opened, the subcu taneous tissue was divided using electrocautery and PowerPort along the catheter was dissected free from the surrounding subcutaneous tissue and removed entirely. The wound was irrigated with saline, hemostasis ensured with electrocautery and subcutaneous tissue was approximated using 3-0 Vicryl suture and skin was closed using running subcuticular 4-0 Monocryl suture. 4x4 and sterile dressings were used as a pressure dressing. The patient was transferred to the recovery room in stable condition. The PowerPort was sent to pathology
--- NOTE | 2020-05-04 14:32 | ANE.PACU2 ---
Inpatient post-anesthesia follow up: Airway intact: Yes Vital signs: Temperature 97.6 F Pulse Rate 61 Respiratory Rate 18 Blood Pressure 125/85 Pulse Oximetry 96 Oxygen Delivery Me thod Room Air Oxygen Flow Rate Fraction of Inspir ed Oxygen Hydration adequate: Yes Nausea and vomiting: No Pain level: 1 Mental status: Baseline
== END 2020-05-04 13:34 | disposition home or self-care (01) ==
PROVIDERS: PCP Nurse Practitioner Family; Visit Provider Surgery
PROC: (CPT 36589; principal; 2020-05-04 13:10)
DX: Z45.2 Encounter for adjustment and management of vascular access device (principal); I10 Essential (primary) hypertension; K21.9 Gastro-esophageal reflux disease without esophagitis; F17.210 Nicotine dependence, cigarettes, uncomplicated
CPT/HCPCS: 36590; 12345; J2250; J2704; J3010; J3490; J7030

== ENCOUNTER 2020-11-02 09:43 | Outpatient (CLI) | payer BC, SELFPAY ==
--- NOTE | 2020-11-05 15:21 | ONC FU_ITS ---
Dr. Mendoza Patient Follow-Up Note Patient: Laith Cline Unit #: [id number]: [id number] Dicatated By: Roger Mendoza M.D.Date of Visit:Nov 02, 2020 Onc Med Follow-up/Prog Note Chief Complaint: Lymphoma. History of Present Illness: This is a 60 year-old man with diffuse large B-cell lymphoma, non-germinal center phenotype, stage IIIS by clinical evaluation. He had presented with enlarging masses on both sides of the neck. He first became aware of it and October or November, following an illness which was diagnosed as [place] spotted fever. He was referred to Dr. Panchal. He had nondiagnostic FNA and core needle biopsies. PET/CT on 02/07/2019 showed extensive hypermetabolic head and neck adenopathy with maximum SUV 27.7, felt to likely represent lymphoma. Also noted was hypermetabolic adenoid and tonsillar tissue, consistent with lymphoma this involvement, and a splenic lesion consistent with extranodal disease. He underwent incisional biopsy of the right cervical lymph node on 03/03/2019. Pathology was consistent with diffuse large B-cell lymphoma, non-germinal center phenotype. By immunoperoxidase the lymphoma cells were positive for CD20, CD5, BL 6, MUM 1, BCL-2. MYC was positive at 20-30%, and CARLA was equivocal with very rare positive cells. They were negative for CD3, CD10, cyclin D1, and Sox 11. With those findings he was recommended not undergo treatment with 6 cycles of R-CHOP chemotherapy. He began treatment with R-CHOP chemotherapy, cycle 1 day 1 on 03/19/2019. He was given first cycle prophylaxis with Neulasta. He developed acute onset of lower extremity edema immediately following that treatment, but that subsequently resolved, and he otherwise tolerated it very well. He was seen for a follow-up visit on 04/09/2019. At that point he appeared to have a very good clinical response, and he continued with his 2nd cycle of treatment. On 04/23/2019 he presented with significant swelling in the left arm, and he was confirmed to have a Port-A-Cath related deep vein thrombosis at the left jugular/subclavian junction. He began anticoagulation with apixaban, and he underwent removal of the Port-A-Cath. He continued the apixaban following the procedure. Restaging PET/CT on 04/25/2019 showed resolution of hypermetabolic adenopathy in the head and neck. Residual nodes were noted to be subcentimeter in size and FDG negative. The splenic lesion seen on the prior study was noted to demonstrate activity no greater than mediastinal background. It measured 3.3 x 2.5 cm. Bilateral tonsillar activity was noted to have normalized. 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 He then had a short treatment delay while he underwent replacement of the Port-A-Cath. He then continued with cycle 3 of R-CHOP on 05/07/2019, with cycle 4 on 06/04/2019, with cycle 5 on 06/24/2019, and with cycle 6 on 07/16/2019. Restaging PET/CT showed increased SUV and a right paratracheal lymph node to 7.8 compared to 4.9 on the previous study. Residual lymphoma was not excluded. There were no other areas of abnormal uptake on that study. With that finding he was referred to Dr. Valdez. On 08/04/2019 he underwent bronchoscopy/EBUS with FNA biopsy of the right paratracheal lymph node. Also noted at that time was a smooth circular endobronchial lesion in the medial segment of the right middle lobe. That lesion was evaluated with endobronchial biopsy. Pathology showed benign respiratory mucosa and cartilage with no malignancy identified. The FNA biopsy was sent up to [place], and it also was negative for malignancy. At his subsequent follow-up visit in July 2019 he had reported some tenderness in the left breast. Diagnostic mammogram and ultrasound were unrevealing. He continued on observation/expectant management. His other medical illnesses include hypertension, degenerative disease of the spine, and nephrolithiasis. He also was previously treated for [place] spotted fever. He has a history of smoking for 40 years, previously up to 2 1/2 packs of cigarettes daily. He had cut down to 1/2 pack per day. INTERIM HISTORY: Surveillance neck CT on 12/01/2019 showed several small bilateral cervical chain lymph nodes, all subcentimeter. These appeared slightly more prominent compared to the PET/CT from June 2019. Early recurrence of lymphoma was not excluded. There were no significantly enlarged lymph nodes noted. His repeat PET/CT on 02/27/2020 showed partially calcified right paratracheal lymph node showed SUV decreased to 3.6 compared to 7.8 on the previous PET/CT from June 2019. There was no significant head and neck adenopathy noted. New soft tissue in the left breast measuring 4.4 x 2.4 cm showed mild FDG uptake, SUV 2.5, consistent with inflammatory change. Scarring at the right lung apex was FDG negative and unchanged. He is seen for a follow-up visit. He has been feeling good generally. He says he does tire a little more easily than he used to, but he has normal activity. ECOG score is 0. Appetite is good. He has no fever or night sweats. He has no shortness of breath, cough, or chest pain. He has no GI or complaints. He has no significant joint or bone pain. He does not complain of headache or dizziness. He has now had pretty much complete resolution of his neuropathy symptoms. Medications: dilTIAZem HCl 1 Tablet (of 120 mg) Oral daily, Eliquis 1 Tablet (of 5 mg) Oral b.i.d., LORazepam 1 Tablet (of 1 mg) Oral t.i.d. PRN, Pantoprazole Sodium 1 Tablet (of 40 mg) Tablet, enteric coated Oral daily, Prochlorperazine Maleate 1 Tablet (of 10 mg) Oral q 4 hours PRN Allergies: No Known Allergies. Vital Signs: Weight is 202 pounds. Blood pressure 139/88, pulse 67, respirations 18, temp 98.0 degrees, and oxygen saturation 95%. Physical Examination: Constitutional - He looks good generally, Eyes - Sclerae nonicteric. Conjunctivae clear, ENMT - No lesions noted in the oral cavity, Neck - There is a soft nodule palpable in the right posterior cervical area. It measures in the range of 2 cm, and it appears similar to prior exams, Hematologic/Lymphatic - There is no cervical, clavicular, or axillary adenopathy noted, Respiratory - Lungs are clear, Cardiovascular - Heart rhythm is regular. There is no murmur, gallop, or rub noted, Abdomen - Soft. Liver and spleen are not enlarged. There is no abdominal mass or ascites noted and there is no inguinal adenopathy, Extremities - No edema, Neurologic - No focal neurologic deficits noted. Lab/Imaging: Test performed on Oct 31, 2020 09:18 Glucose 108 mg/dL LDH, Total 11 IU/L BUN 23 mg/dL Creatinine 1.33 mg/dL Cr Clearance (Est) 69.80 mL/min Sodium 138 mmol/L Potassium 4.0 mmol/L Chloride 105 mmol/L CO2 22 mmol/L Calcium 9.0 mg/dL Protein, Total 6.9 g/dL Albumin 3.8 g/dL Bilirubin, Total 0.4 mg/dL Alkaline Phosphatase 98 IU/L AST (SGOT) 21 IU/L ALT (SGPT) 19 IU/L WBC 6.0 10^9/L RBC 4.74 10^12/L HGB 14.8 g/dL HCT 44.2 % MCV 93.2 fl MCH 31.2 pg MCHC 33.5 g/dL RDW 13.1 % Platelet Count 222 10^9/L MPV 9.3 fL Neutrophils (Gran) 3.85 10^9/L Lymphocytes 1.52 10^9/L Monocytes 0.49 10^9/L Eosinophils 0.07 10^9/L Basophils 0.01 10^9/L Manual Segs 65 % Manual Lymphocytes 26 % Manual Monocytes 8 % Manual Eosinophils 1 % Manual Basophils 0 % Problem List: 1. Diffuse large B-cell lymphoma, non-germinal center phenotype. By clinical evaluation, his disease appears to be stage IIIS. 2. He was diagnosed with [place] spotted fever in October or November 2018. 3. Hypertension, but currently with episodes of orthostatic hypotension. 4. GERD. 5. History of nephrolithiasis. Problems Addressed with this Encounter and Plan: Patient with diffuse large B-cell lymphoma, non-germinal center phenotype. By clinical evaluation, his disease appears to be stage IIIS. He underwent treatment with 6 cycles of R-CHOP chemotherapy from 03/19/2019 through 07/16/2019. His treatment was complicated by a Port-A-Cath related thrombosis involving the left subclavian/internal jugular veins during cycle 2. His initial restaging PET/CT on 04/25/2019 showed findings which appeared consistent with complete response. He had a short treatment delay while he underwent replacement of his Port-A-Cath. His treatment was otherwise complicated by neutropenia and fatigue. Overall, though, he tolerated it well. His repeat PET/CT on 07/25/2019 showed increased SUV to 7.8 compared to 4.9 on the previous study. Active lymphoma was not excluded. There were no other areas of abnormal uptake. He underwent bronchoscopy/EBUS with FNA of the right paratracheal lymph node on 08/14/2019. Cytology was negative for malignancy. With that finding he continued on expectant management. His surveillance PET/CT on 02/27/2020 showed a partially calcified right paratracheal lymph node with improvement in the SUV, down to 3.8 compared to 7.8 on the prior study. There were no new areas of abnormal uptake. During follow-up he has continued to do well clinically with no obvious recurrence/progression of the lymphoma. He remains on observation/expectant management. He will be scheduled for a follow-up visit with surveillance CT scans in 6 months. Signed By: Roger Mendoza M.D. <<Signature on File>>
== END 2020-11-02 09:44 | disposition home or self-care (01) ==
LOC: ONCMED 09:46
PROVIDERS: PCP Nurse Practitioner Family; Visit Provider Internal Medicine Medical Oncology
DX: Z08 Encounter for follow-up examination after completed treatment for malignant neoplasm (principal); Z85.72 Personal history of non-Hodgkin lymphomas; I10 Essential (primary) hypertension; I95.0 Idiopathic hypotension; K21.9 Gastro-esophageal reflux disease without esophagitis; N20.0 Calculus of kidney; Z86.19 Personal history of other infectious and parasitic diseases; Z86.711 Personal history of pulmonary embolism; Z79.899 Other long term (current) drug therapy
CPT/HCPCS: G0463

== ENCOUNTER 2021-07-04 10:09 | Outpatient (CLI) | payer BC, SELFPAY ==
--- NOTE | 2021-07-04 | CT_ITS ---
WS: [id number] CT CHEST TECHNIQUE: Contrast enhanced CT of the chest with coronal and sagittal reformatted images. CLINICAL INFORMATION: LYMPHOMA COMPARISON: PET/CT February 27, 2020 And DLP: 908.[address] scans at [facility] [place] use at least one of these dose optimization techniques: automated e xposure control; mA and/or kV adjustment per patient size (includes targeted exams where dose is matc hed to clinical indication); or iterative reconstruction. FINDINGS: Both lungs are well aerated. Fibrosis with micronodular opacities right lung apex. This is similar to the prior studies. No new pulmonary infiltrates. No focal pneumonia or pleural fluid. No mediastinal or hilar lymphadenopathy. Proximal main pulmonary arteries are normal. Normal caliber thoracic aorta. Diffuse fatty infiltratio n liver. Thickening of the adrenal glands bilaterally. Low-attenuation lesion upper pole right kidney measuring 8 mm too small to definitively characterize. Normal GE junction. Diffuse fatty infiltratio n liver. Hypertrophic changes thoracic spine. Schmorl's nodes in the mid thoracic spine. CT/CT chest w con* [id number] IMPRESSION: 1. Fibrosis with micronodular opacities in right upper lobe unchanged since prior studies. 2. No other suspicious pulmonary parenchymal abnormalities. 3. No mediastinal or hilar lymphadenopathy. 4. Stable thickening of both adrenal glands. This is unchanged. 5. Indeterminant right upper pole low-attenuation renal lesion measuring 8 mm too small to definitely characterize. This is unchanged since the PET/CT February 27, 2020. This could be followed up with renal ultrasound.
[2021-07-04] MEDS: iohexol 300 mg/mL 100 mL Btl IV (15:21)
== END 2021-07-04 10:10 | disposition home or self-care (01) ==
LOC: RADWPI 10:12
PROVIDERS: PCP Nurse Practitioner Family; Visit Provider Internal Medicine Medical Oncology
DX: C83.31 Diffuse large B-cell lymphoma, lymph nodes of head, face, and neck (principal); J84.10 Pulmonary fibrosis, unspecified
CPT/HCPCS: 71260; Q9967

== ENCOUNTER 2021-07-07 08:50 | Outpatient (CLI) | payer BC, SELFPAY ==
--- NOTE | 2021-07-07 09:08 | CT_ITS ---
WS: [id number] Exam: CT neck w con* [id number] Date/Time of Exam: 07/07/2021 9:11 AM Reason For Exam: DIFFUSE LARGE B-CELL LYMPHOMA, ACUTE EMBOLISM AND THROMBOSIS DLP: 1150.[address] scans at [facility] use at least one of these dose optimization techniques: automated e xposure control; mA and/or kV adjustment per patient size (includes targeted exams where dose is matc hed to clinical indication); or iterative reconstruction. Comparison made to prior study 12/01/2019. Stable appearing 11 mm contrast-enhancing nodule in the right parotid gland. No lesions seen in the l eft parotid gland. No significant cervical lymphadenopathy. No other mass in the neck. Normal submand ibular glands. The airway is patent. No masses in the region of the tongue base. Vascular structures in the neck are patent. Normal thyroid lobes. No superior mediastinal lymphadenopathy. No axillary or subpectoral lymphadenopathy. Anterior fusion of the cervical spine with anterior plate and screw fix ation. CT sections of the skull base were unremarkable. Mucosal thickening in the maxillary sinuses. Visualized upper lung zones are clear. Chronic fibrous scarring in the apex of the right lung. CT/CT neck w con* [id number] IMPRESSION: 1. Stable appearing 11 mm contrast-enhancing nodule in the right parotid gland. 2. No sign of new neck mass. No significant lymphadenopathy is noted. 3. Overall, stable exam since the previous study
[2021-07-07 09:44] LABS: Blood Urea Nitrogen 17 mg/dL (8-23); Glomerular Filtration Rate 61.8 mL/min (90-130)
[2021-07-07] MEDS: iohexol 300 mg/mL 100 mL Btl IV (11:12)
== END 2021-07-07 08:51 | disposition home or self-care (01) ==
PROVIDERS: PCP Nurse Practitioner Family; Visit Provider Internal Medicine Medical Oncology
DX: C83.31 Diffuse large B-cell lymphoma, lymph nodes of head, face, and neck (principal); I82.B12 Acute embolism and thrombosis of left subclavian vein
CPT/HCPCS: 70491; 82565; 84520; Q9967

== ENCOUNTER 2021-07-11 08:56 | Outpatient (CLI) | payer BC, SELFPAY ==
[2021-07-11 09:34] LABS: Basophils % 0.2 %; Eosinophils # 0.1 10^3/uL (0.0-0.8); Eosinophils % 0.9 %; Hematocrit 43.1 % (42.0-52.0); Hemoglobin 14.4 g/dL (11.7-16.6); Lymphocytes # 1.9 10^3/uL (0.8-4.8); Lymphocytes % 29.1 %; Mean Corpuscular HGB Conc 33.4 g/dL (30.0-36.0); Mean Corpuscular Hemoglobin 31.2 pg (28.0-34.0); Mean Corpuscular Volume 93.5 fl (80-94); Mean Platelet Volume 9.3 fL (7.4-10.4); Monocytes # 0.6 10^3/uL (0.2-0.9); Monocytes % 8.8 %; Neutrophils # 3.89 10^3/uL (1.8-7.7); Neutrophils % 60.8 %; Nucleated Red Blood Cells % 0 %; Platelet Count 236 10^3/cmm (130-400); Red Blood Count 4.61 10^6/uL (4.1-5.3); Red Cell Distribution Width 12.9 % (12.1-15.1); White Blood Count 6.4 10^3/uL (4.0-10.0)
[2021-07-11 09:57] LABS: Alanine Aminotransferase 20 U/L (0-41); Albumin Level 4.1 g/dL (3.5-5.2); Alkaline Phosphatase 77 IU/L (40-130); Anion Gap 16.4 (5-19); Aspartate Amino Transferase 20 U/L (0-40); Blood Urea Nitrogen 19 mg/dL (8-23); Calcium 8.2 mg/dL (8.5-10.5); Carbon Dioxide 22 mmol/L (22-29); Chloride 105 mmol/L (98-107); Globulin 2.6 g/dL (1.3-4.6); Glomerular Filtration Rate 68.3 mL/min (90-130); Glucose 94 mg/dL (65-115); Lactate Dehydrogenase 192 U/L (135-225); Osmolality Calculated 290 mOsm/kg (285-295); Potassium 4.4 mmol/L (3.5-5.1); Sodium 139 mmol/L (136-145); Total Bilirubin 0.2 mg/dL (0.15-1.2); Total Protein 6.7 g/dL (6.6-8.7)
--- NOTE | 2021-07-15 10:36 | ONC FU_ITS ---
Dr. Mendoza Patient Follow-Up Note Patient: Laith Cline Unit #: [id number]: 1960 Dicatated By: Roger Mendoza M.D.Date of Visit:Jul 11, 2021 Onc Med Follow-up/Prog Note Chief Complaint: Lymphoma. History of Present Illness: This is a 60 year-old man with diffuse large B-cell lymphoma, non-germinal center phenotype, stage IIIS by clinical evaluation. He had presented with enlarging masses on both sides of the neck. He first became aware of it and October or November, following an illness which was diagnosed as [place] spotted fever. He was referred to Dr. Panchal. He had nondiagnostic FNA and core needle biopsies. PET/CT on 02/07/2019 showed extensive hypermetabolic head and neck adenopathy with maximum SUV 27.7, felt to likely represent lymphoma. Also noted was hypermetabolic adenoid and tonsillar tissue, consistent with lymphoma this involvement, and a splenic lesion consistent with extranodal disease. He underwent incisional biopsy of the right cervical lymph node on 03/03/2019. Pathology was consistent with diffuse large B-cell lymphoma, non-germinal center phenotype. By immunoperoxidase the lymphoma cells were positive for CD20, CD5, BL 6, MUM 1, BCL-2. MYC was positive at 20-30%, and CARLA was equivocal with very rare positive cells. They were negative for CD3, CD10, cyclin D1, and Sox 11. With those findings he was recommended not undergo treatment with 6 cycles of R-CHOP chemotherapy. He began treatment with R-CHOP chemotherapy, cycle 1 day 1 on 03/19/2019. He was given first cycle prophylaxis with Neulasta. He developed acute onset of lower extremity edema immediately following that treatment, but that subsequently resolved, and he otherwise tolerated it very well. He was seen for a follow-up visit on 04/09/2019. At that point he appeared to have a very good clinical response, and he continued with his 2nd cycle of treatment. On 04/23/2019 he presented with significant swelling in the left arm, and he was confirmed to have a Port-A-Cath related deep vein thrombosis at the left jugular/subclavian junction. He began anticoagulation with apixaban, and he underwent removal of the Port-A-Cath. He continued the apixaban following the procedure. Restaging PET/CT on 04/25/2019 showed resolution of hypermetabolic adenopathy in the head and neck. Residual nodes were noted to be subcentimeter in size and FDG negative. The splenic lesion seen on the prior study was noted to demonstrate activity no greater than mediastinal background. It measured 3.3 x 2.5 cm. Bilateral tonsillar activity was noted to have normalized. 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 He then had a short treatment delay while he underwent replacement of the Port-A-Cath. He then continued with cycle 3 of R-CHOP on 05/07/2019, with cycle 4 on 06/04/2019, with cycle 5 on 06/24/2019, and with cycle 6 on 07/16/2019. Restaging PET/CT showed increased SUV and a right paratracheal lymph node to 7.8 compared to 4.9 on the previous study. Residual lymphoma was not excluded. There were no other areas of abnormal uptake on that study. With that finding he was referred to Dr. Valdez. On 08/04/2019 he underwent bronchoscopy/EBUS with FNA biopsy of the right paratracheal lymph node. Also noted at that time was a smooth circular endobronchial lesion in the medial segment of the right middle lobe. That lesion was evaluated with endobronchial biopsy. Pathology showed benign respiratory mucosa and cartilage with no malignancy identified. The FNA biopsy was sent up to [facility], and it also was negative for malignancy. At his subsequent follow-up visit in July 2019 he had reported some tenderness in the left breast. Diagnostic mammogram and ultrasound were unrevealing. He continued on observation/expectant management. His other medical illnesses include hypertension, degenerative disease of the spine, and nephrolithiasis. He also was previously treated for [place] spotted fever. He has a history of smoking for 40 years, previously up to 2 1/2 packs of cigarettes daily. He had cut down to 1/2 pack per day. INTERIM HISTORY: Surveillance neck CT on 12/01/2019 showed several small bilateral cervical chain lymph nodes, all subcentimeter. These appeared slightly more prominent compared to the PET/CT from June 2019. Early recurrence of lymphoma was not excluded. There were no significantly enlarged lymph nodes noted. His repeat PET/CT on 02/27/2020 showed partially calcified right paratracheal lymph node showed SUV decreased to 3.6 compared to 7.8 on the previous PET/CT from June 2019. There was no significant head and neck adenopathy noted. New soft tissue in the left breast measuring 4.4 x 2.4 cm showed mild FDG uptake, SUV 2.5, consistent with inflammatory change. Scarring at the right lung apex was FDG negative and unchanged. He continued expectant management. Surveillance CT scans of the chest, abdomen, and pelvis on 07/04/2021 showed fibrosis and micronodular opacities in the upper lobe of the right lung, unchanged from prior studies. There were no other suspicious pulmonary parenchymal abnormalities and there is no mediastinal or hilar lymphadenopathy noted. There was diffuse fatty infiltration of the liver and thickening of the adrenal glands bilaterally. There was no adenopathy reported in the abdomen/pelvis. Surveillance neck CT on 07/07/2021 showed stable appearing contrast-enhancing nodule in the right parotid gland measuring 11 mm. There was no lymphadenopathy or new neck mass noted. Overall, there was no evidence of recurrence/progression of the lymphoma. He is seen for a follow-up visit. He has been feeling pretty good generally. He says that some days he does feel rundown, but he has normal activity. ECOG score is 0. He has good appetite. He has not had fever. He still has some night sweating 1 or 2 days at a time. The frequency varies. He has not had sore mouth or throat. He does not complain of cough. He has some shortness of breath, but he is still smoking. He has not had chest pain. He has no GI/ complaints other than some constipation. He has lower back pain, which is chronic. He does not complain of headache or dizziness, and he has no focal neurologic symptoms. Medications: dilTIAZem HCl 1 Tablet (of 120 mg) Oral daily, Eliquis 1 Tablet (of 5 mg) Oral b.i.d., LORazepam 1 Tablet (of 1 mg) Oral t.i.d. PRN, Pantoprazole Sodium 1 Tablet (of 40 mg) Tablet, enteric coated Oral daily, Prochlorperazine Maleate 1 Tablet (of 10 mg) Oral q 4 hours PRN Allergies: No Known Allergies. Vital Signs: Performed on Jul 11, 2021 11:03 Height - 65.00 in Weight - 192.4 lbs (LOW) BSA - 1.95 sq.m BMI - 32.02 (HIGH) Temperature - 97.1 F (LOW) Pulse - 69 /min Respiration - 18 /min BP - 149/98 mm(hg) (HIGH) O2 Sat - 97 % Pain - 0 Fatigue - 5 Physical Examination: Constitutional - He looks good generally, Eyes - Sclerae nonicteric. Conjunctivae clear, ENMT - No lesions noted in the oral cavity, Neck - There is a soft nodule palpable in the right posterior cervical area. It measures in the range of 2 cm, and it appears similar to prior exams, Hematologic/Lymphatic - There is no cervical, clavicular, or axillary adenopathy noted, Respiratory - Lungs are clear, Cardiovascular - Heart rhythm is regular. There is no murmur, gallop, or rub noted, Abdomen - Soft. Liver and spleen are not enlarged. There is no abdominal mass or ascites noted and there is no inguinal adenopathy, Extremities - No edema, Neurologic - No focal neurologic deficits noted. Lab/Imaging: Test performed on Jul 11, 2021 09:27 LDH (Total) 192 U/L Sodium 139 mmol/L Potassium 4.4 mmol/L Chloride 105 mmol/L CO2 22 mmol/L Anion Gap 16.4 BUN 19 mg/dL Creatinine 1.1 mg/dL Cr Clearance (Est) 84.4000 mL/min eGFR 68.3 mL/min Glucose 94 mg/dL Osmolality - Calculated 290 mOsm/kg Calcium 8.2 mg/dL Protein, Total 6.7 g/dL Albumin 4.1 g/dL Globulin 2.6 g/dL Bilirubin, Total 0.2 mg/dL ALT (SGPT) 20 U/L AST (SGOT) 20 U/L Alkaline Phosphatase 77 IU/L WBC 6.4 10 3/uL RBC 4.61 10 6/uL HGB 14.4 g/dL HCT 43.1 % MCV 93.5 fl MCH 31.2 pg MCHC 33.4 g/dL RDW 12.9 % Platelet Count 236 10 3/cmm MPV 9.3 fL Neutrophils 3.89 10 3/uL Lymphocytes 1.9 10 3/uL Monocytes 0.6 10 3/uL Eosinophils 0.1 10 3/uL Basophils 0.0 10 3/uL Neutrophil % 60.8 % Lymphocyte % 29.1 % Monocyte % 8.8 % Eosinophil % 0.9 % Basophils % 0.2 % NRBC % 0 % Problem List: 1. Diffuse large B-cell lymphoma, non-germinal center phenotype. By clinical evaluation, his disease appears to be stage IIIS. 2. He was diagnosed with [place] spotted fever in October or November 2018. 3. Hypertension, but currently with episodes of orthostatic hypotension. 4. GERD. 5. History of nephrolithiasis. Problems Addressed with this Encounter and Plan: 1. Patient with diffuse large B-cell lymphoma, non-germinal center phenotype. By clinical evaluation, his disease appears to be stage IIIS. He underwent treatment with 6 cycles of R-CHOP chemotherapy from 03/19/2019 through 07/16/2019. His treatment was complicated by a Port-A-Cath related thrombosis involving the left subclavian/internal jugular veins during cycle 2. His initial restaging PET/CT on 04/25/2019 showed findings which appeared consistent with complete response. He had a short treatment delay while he underwent replacement of his Port-A-Cath. His treatment was otherwise complicated by neutropenia and fatigue. Overall, though, he tolerated it well. His repeat PET/CT on 07/25/2019 showed increased SUV to 7.8 compared to 4.9 on the previous study. Active lymphoma was not excluded. There were no other areas of abnormal uptake. He underwent bronchoscopy/EBUS with FNA of the right paratracheal lymph node on 08/14/2019. Cytology was negative for malignancy. His surveillance PET/CT on 02/27/2020 showed a partially calcified right paratracheal lymph node with improvement in the SUV, down to 3.8 compared to 7.8 on the prior study. There were no new areas of abnormal uptake. During follow-up he has been doing well clinically. His surveillance CT scan of the neck and CT scans of the chest, abdomen, and pelvis showed no evidence of recurrence/progression of the lymphoma. He continues expectant management. I will see him again in 6 months. 2. He has GERD. It has been well controlled on Nexium, but he is wanting to try to get off of the proton pump inhibitor. As such, I will have him try famotidine 20 mg twice daily. He will let me know if that is not effective. Signed By: Roger Mendoza M.D. <<Signature on File>>
== END 2021-07-11 08:57 | disposition home or self-care (01) ==
LOC: ONCMED 08:57
PROVIDERS: PCP Nurse Practitioner Family; Visit Provider Internal Medicine Medical Oncology
DX: C83.31 Diffuse large B-cell lymphoma, lymph nodes of head, face, and neck (principal); I10 Essential (primary) hypertension; K21.9 Gastro-esophageal reflux disease without esophagitis
CPT/HCPCS: 36415; 80053; 83615; 85025; 99214

== ENCOUNTER 2022-02-14 11:07 | Oncology outpatient (recurring) (ONCR) | payer BC, SELFPAY ==
[2022-02-14 11:55] LABS: Basophils % 0.1 %; Eosinophils # 0.1 10^3/uL (0.0-0.8); Hematocrit 41.7 % (42.0-52.0); Hemoglobin 14.3 g/dL (11.7-16.6); Lymphocytes # 1.7 10^3/uL (0.8-4.8); Lymphocytes % 25.1 %; Mean Corpuscular HGB Conc 34.3 g/dL (30.0-36.0); Mean Corpuscular Hemoglobin 31.9 pg (28.0-34.0); Mean Corpuscular Volume 93.1 fl (80-94); Mean Platelet Volume 9.5 fL (7.4-10.4); Monocytes # 0.6 10^3/uL (0.2-0.9); Monocytes % 8.3 %; Neutrophils # 4.46 10^3/uL (1.8-7.7); Neutrophils % 65.4 %; Nucleated Red Blood Cells % 0 %; Platelet Count 234 10^3/cmm (130-400); Red Blood Count 4.48 10^6/uL (4.1-5.3); Red Cell Distribution Width 13.2 % (12.1-15.1); White Blood Count 6.8 10^3/uL (4.0-10.0)
[2022-02-14 12:50] LABS: Alanine Aminotransferase 19 U/L (0-41); Alkaline Phosphatase 88 IU/L (40-130); Anion Gap 12.1 (5-19); Aspartate Amino Transferase 19 U/L (0-40); Blood Urea Nitrogen 18 mg/dL (8-23); Calcium 8.8 mg/dL (8.5-10.5); Carbon Dioxide 27 mmol/L (22-29); Chloride 105 mmol/L (98-107); Globulin 2.7 g/dL (1.3-4.6); Glomerular Filtration Rate 61.6 mL/min (90-130); Glucose 92 mg/dL (65-115); Lactate Dehydrogenase 184 U/L (135-225); Osmolality Calculated 292 mOsm/kg (285-295); Potassium 4.1 mmol/L (3.5-5.1); Sodium 140 mmol/L (136-145); Total Bilirubin 0.4 mg/dL (0.15-1.2); Total Protein 6.7 g/dL (6.6-8.7)
== END 2022-02-25 23:59 | disposition home or self-care (01) ==
PROVIDERS: Internal Medicine Medical Oncology; PCP Nurse Practitioner Family; Visit Provider Nurse Practitioner Family
DX: C83.31 Diffuse large B-cell lymphoma, lymph nodes of head, face, and neck (principal)
CPT/HCPCS: 80053; 83615; 85025

== ENCOUNTER 2022-03-07 06:01 | Day surgery (SDC) | payer BC, SELFPAY ==
[2022-03-05 12:16] VITALS: BMI 32.9
[2022-03-07 06:31] VITALS: BP 129/87; PULSE 60; RESP 18; TEMP 36.2; O2SAT 94
[2022-03-07] MEDS: sodium chloride 0.9% 1,000 ML 30 ML IV (06:43)
--- NOTE | 2022-03-07 06:59 | ANES.PREANE2 ---
Pre-Anesthetic Assessment Height/Weight: Height 1.63 m Weight 87.09 kg Temp Pulse Resp BP Pulse Ox O2 Del Method 97.2 F L 60 18 129/87 94 03/07/22 06:31 03/07/22 06:31 03/07/22 06:31 03/07/22 06:31 03/07/22 06:31 03/07/22 06:31 Preop Diagnosis: diagnostic Operation Date: 03/07/22 07:30 Proposed Procedures p Colonoscopy 86060/z12.11(Not Applicable) - Aaron Tomlinson MD Familial anesthetic complications: none Was Beta Byron taken within 24 hours: N/A Was Clonidine taken within 24 hours: N/A Last intake: Intake Last Liquid Date 03/06/22 Last Liquid Time 23:30 Last Solid Date 03/06/22 Last Solid Time 00:00 Last Intake: 23:30 Social Tobacco 1ppd for 40+ pack years Exam alert, oriented x 3, clear to auscultation bilaterally and regular rate & rhythm Airway Submandibular: within normal limits Cervical ROM: within normal limits Mallampati: Class I Dentition: false (upper) Pulmonary Chronic Obstructive Pulmonary Disease CV/HEM Hypertension None reported Hepatic None reported GI Gastroesophageal Reflux Disease (controlled) Metabolic None reported Musc/skel None reported Neuropsych None reported Anesthetic Plan ASA status: 2 Anesthesia: MAC Medications/Allergies Home Medications Medication Instructions Recorded Confirmed Last Taken Type diltiazem HCl 120 mg 120 mg PO QAM 08/06/19 03/07/22 03/07/22 History capsule,extended release 24 hr lorazepam 0.5 mg tablet 0.5 mg PO TID PRN Anxiety 08/06/19 03/07/22 03/06/22 History pantoprazole 40 mg tablet,delayed 40 mg PO DAILY 08/06/19 03/07/22 03/07/22 History release (Protonix) Allergies Allergy/AdvReac Type Severity Reaction Status Date / Time No Known Allergies Allergy Verified 02/14/22 12:04 Current Medications Generic Name Dose Route Start Last Admin Trade Name Freq PRN Reason Stop Dose Admin Sodium Chloride 1,000 mls @ 30 mls/hr 03/07/22 06:15 03/07/22 06:43 Sodium Chloride 0.9% IV 03/08/22 06:14 30 mls/hr .Q24H SWATHI Administration PFSH Anesthesia Medical History (Updated 02/14/22 @ 12:19 by Lisa Prieto NP) KRISTIN (acute kidney injury) Atrioventricular block, first degree Essential (primary) hypertension Lymphoma Presence of other vascular implants and grafts Port-A-Cath Venous thrombosis Surgical History H/O circumcision H/O hand surgery H/O neck surgery H/O oral surgery History of back surgery Hx of colonoscopy Family History (Updated 02/14/22 @ 12:08 by Daniela Campbell LPN) Father Cancer Mother Diabetes Other Hypertension Denies family history of CAD (coronary artery disease) Clotting disorder Dementia Hyperlipidemia Psychiatric illness Chronic kidney disease (CKD) Suicide Anesthesia complication Bleeding disorder Lung disease Stroke Social History Smoking and tobacco status: current every day smoker (1 ppd) cigarettes Years cigarettes smoked: 40 Alcohol intake: never Lives independently: Yes Household members: spouse Marital status: Current occupational status: retired History of recent travel: No Current gender identity: Male Agree to transfusion: Yes Data Anesthesia Cardiac Studies: No Data to Display
--- NOTE | 2022-03-07 07:31 | P.HP_ITS ---
Same Day Surgery H&P Indication for Procedure/HPI DATE OF PROCEDURE: March 07, 2022 CHIEF COMPLAINT/INDICATIONFOR SURGICAL PROCEDURE: colonoscopy PREOP DIAGNOSIS: diagnostic PLANNED PROCEDURE: Operation Date: 03/07/22 07:30 Proposed Procedures p Colonoscopy 69334/z12.11(Not Applicable) - Aaron Tomlinson MD Medications/Allergies* Home Medications Medication Instructions Recorded Confirmed Type diltiazem HCl 120 mg 120 mg PO QAM 08/06/19 03/07/22 History capsule,extended release 24 hr lorazepam 0.5 mg tablet 0.5 mg PO TID PRN Anxiety 08/06/19 03/07/22 History pantoprazole 40 mg tablet,delayed 40 mg PO DAILY 08/06/19 03/07/22 History release (Protonix) Allergies/Adverse Reactions Allergy/AdvReac Type Severity Reaction Status Date / Time No Known Allergies Allergy Verified 02/14/22 12:04 Current Medications: Generic Name Dose Route Start Last Admin Trade Name Freq PRN Reason Stop Dose Admin Sodium Chloride 1,000 mls @ 30 mls/hr 03/07/22 06:15 03/07/22 06:43 Sodium Chloride 0.9% IV 03/08/22 06:14 30 mls/hr .Q24H SWATHI Administration Pertinent History/Comorbid Conditions* Medical History (Updated 02/14/22 @ 12:19 by Lisa Prieto NP) KRISTIN (acute kidney injury) Atrioventricular block, first degree Essential (primary) hypertension Lymphoma Presence of other vascular implants and grafts Port-A-Cath Venous thrombosis Surgical History (Updated 08/06/19 @ 11:33 by Blayne Valdez MD) H/O circumcision H/O hand surgery H/O neck surgery H/O oral surgery History of back surgery Hx of colonoscopy Family History (Updated 02/14/22 @ 12:08 by Daniela Campbell LPN) Diabetes Mother Cancer Father Hypertension Denies family history of CAD (coronary artery disease) Clotting disorder Dementia Hyperlipidemia Psychiatric illness Chronic kidney disease (CKD) Suicide Anesthesia complication Bleeding disorder Lung disease Stroke Social History Smoking and tobacco status: current every day smoker (1 ppd) cigarettes Years cigarettes smoked: 40 Alcohol intake: never Lives independently: Yes Household members: spouse Marital status: Current occupational status: retired History of recent travel: No Current gender identity: Male Agree to transfusion: Yes Pertinent Exam Findings alert, oriented x 3 and regular rate & rhythm Recommendations Surgery/Procedure today Coding Level of Care Code Acute Form Block Maker for milad Castillo
[2022-03-07 08:12] VITALS: BP 141/87; PULSE 70; RESP 18; TEMP 36.2; O2SAT 95
[2022-03-07 08:47] VITALS: BP 125/86; PULSE 62; RESP 18; O2SAT 98
--- NOTE | 2022-03-07 17:52 | ANE.PACU2 ---
Inpatient post-anesthesia follow up: Airway intact: Yes Vital signs: Temperature 97.1 F Pulse Rate 62 Respiratory Rate 18 Blood Pressure 125/86 Pulse Oximetry 98 Oxygen Delivery Me thod Room Air Oxygen Flow Rate Fraction of Inspir ed Oxygen Hydration adequate: Yes Nausea and vomiting: No Pain level: 1 Mental status: Baseline
== END 2022-03-07 08:56 | disposition home or self-care (01) ==
PROVIDERS: PCP Nurse Practitioner Family; Visit Provider Surgery
PROC: 0DJD8ZZ Inspection of Lower Intestinal Tract, Via Natural or Artificial Opening Endoscopic (ICD-10-PCS; CPT 45378; principal; 2022-03-07 07:30)
DX: Z12.11 Encounter for screening for malignant neoplasm of colon (principal); D12.2 Benign neoplasm of ascending colon; D12.4 Benign neoplasm of descending colon; D12.5 Benign neoplasm of sigmoid colon; D12.8 Benign neoplasm of rectum; J44.9 Chronic obstructive pulmonary disease, unspecified; I10 Essential (primary) hypertension; K21.9 Gastro-esophageal reflux disease without esophagitis
CPT/HCPCS: 45385; 88305; J2704; J7030

== ENCOUNTER 2022-08-20 09:43 | Oncology outpatient (recurring) (ONCR) | payer BC, SELFPAY ==
[2022-08-20 10:22] LABS: Basophils % 0.1 %; Eosinophils # 0.1 10^3/uL (0.0-0.8); Hematocrit 46.4 % (42.0-52.0); Hemoglobin 15.5 g/dL (11.7-16.6); Lymphocytes # 2.1 10^3/uL (0.8-4.8); Lymphocytes % 24.1 %; Mean Corpuscular HGB Conc 33.4 g/dL (30.0-36.0); Mean Corpuscular Hemoglobin 31.8 pg (28.0-34.0); Mean Corpuscular Volume 95.1 fl (80-94); Mean Platelet Volume 9.5 fL (7.4-10.4); Monocytes # 0.7 10^3/uL (0.2-0.9); Monocytes % 7.6 %; Neutrophils # 5.79 10^3/uL (1.8-7.7); Neutrophils % 66.7 %; Nucleated Red Blood Cells % 0 %; Platelet Count 223 10^3/cmm (130-400); Red Blood Count 4.88 10^6/uL (4.1-5.3); White Blood Count 8.7 10^3/uL (4.0-10.0)
== END 2022-08-28 23:59 | disposition home or self-care (01) ==
PROVIDERS: Internal Medicine Medical Oncology; PCP Nurse Practitioner Family; Visit Provider Nurse Practitioner Family
DX: Z08 Encounter for follow-up examination after completed treatment for malignant neoplasm (principal); Z85.72 Personal history of non-Hodgkin lymphomas; Z92.21 Personal history of antineoplastic chemotherapy; Z92.3 Personal history of irradiation
CPT/HCPCS: 36415; 80053; 83615; 85025

== ENCOUNTER 2022-09-17 15:13 | Outpatient (CLI) | payer BC, SELFPAY ==
[2022-09-17] MEDS: iohexol 350 mg/mL 500 mL Btl (per mL) IV (15:37)
[2022-09-17] MEDS: iohexol 350 mg/mL 500 mL Btl (per mL) PO (15:37)
--- NOTE | 2022-09-17 17:00 | CT_ITS ---
WS: [id number] CT CHEST, ABDOMEN AND PELVIS WITH CONTRAST. HISTORY: History of lymphoma. Chest pressure. TECHNIQUE: Contiguous 5 mm axial imaging performed through the chest, abdomen and pelvis with IV cont rast, oral contrast has been provided. Coronal and sagittal reformats chest. Coronal and sagittal ref ormats through the abdomen and pelvis. All CT scans at [facility] use at least one of these d ose optimization techniques: automated exposure control; mA and/or kV adjustment per patient size (in cludes targeted exams where dose is matched to clinical indication); or iterative reconstruction. CONTRAST: Omnipaque 350; 100 mL IV. DLP: 1135.80 mGy.cm COMPARISON: Chest CT 07/04/2021, PET CT 02/27/[address]: Long-term stability of small calcifications and nodules at the RIGHT apex. No pulmonary mas s or nodule. No pneumonia. No pleural effusions. No mediastinal or hilar adenopathy. Densely calcifie d RIGHT paratracheal lymph node. Very mild atherosclerosis aorta. Irregular shaped soft tissue in the LEFT chest wall may be gynecomastia. Similar in appearance to the prior study from 07/04/2021 and was positive on the most recent PET/CT. No change. Normal size heart. Abdomen CT: Liver and spleen are normal size. Splenic granulomata. Normal portal vein. Mildly contrac chai gallbladder. Normal pancreas. Bilateral low-attenuation masses within each adrenal gland. Similar to 07/04/2021 and probably representing adenoma. Atherosclerosis aorta. No aneurysm. Exophytic comple x cystic mass within the upper pole RIGHT kidney measures 12 mm. Not significantly changed since 07/04. No renal obstruction. Stomach is markedly distended with food products. No small bowel obstruction. Normal appendix. Normal large colon with mild constipation. No obstruction. No adenopathy or ascites. Pelvic CT: No adenopathy or ascites. Normal urinary bladder. No inguinal lymph nodes. Mild thoracic spondylosis. No osteoblastic or osteolytic bone disease. CT/CT chest abdpel w/*[id number] IMPRESSION: 1. No evidence for recurrent lymphoma within the chest, abdomen or pelvis. 2. Increased soft tissue involving the LEFT breast that was positive on PET/CT is unchanged. May be gynecomastia. 3. Markedly distended stomach with food products. May be due to recent meal. 4. Bilateral adrenal nodules are stable. Probably adenoma.
== END 2022-09-17 15:14 | disposition home or self-care (01) ==
LOC: RAD 15:17
PROVIDERS: PCP Nurse Practitioner Family; Visit Provider Internal Medicine Medical Oncology
DX: C85.90 Non-Hodgkin lymphoma, unspecified, unspecified site (principal); R07.89 Other chest pain; E27.9 Disorder of adrenal gland, unspecified
CPT/HCPCS: 71260; 74177; Q9967

== ENCOUNTER → 2023-03-14 14:48 | Outpatient (BNVA) | payer BC, SELFPAY | PROVIDERS: PCP Nurse Practitioner Family; Visit Provider Podiatrist Foot & Ankle Surgery | DX: S92.151A Displaced avulsion fracture (chip fracture) of right talus, initial encounter for closed fracture; S93.401A Sprain of unspecified ligament of right ankle, initial encounter; V89.2XXA Person injured in unspecified motor-vehicle accident, traffic, initial encounter | CPT/HCPCS: 73610 ==

== ENCOUNTER 2023-03-14 15:44 | Outpatient (CLI) | payer BC, SELFPAY | END 2023-03-14 15:45 | disposition home or self-care (01) | LOC: SPT 15:45 | PROVIDERS: PCP Nurse Practitioner Family; Visit Provider Podiatrist Foot & Ankle Surgery | DX: Z46.89 Encounter for fitting and adjustment of other specified devices (principal); S93.409D Sprain of unspecified ligament of unspecified ankle, subsequent encounter; S90.01XD Contusion of right ankle, subsequent encounter; X58.XXXD Exposure to other specified factors, subsequent encounter | CPT/HCPCS: 97760; L1902 ==

== ENCOUNTER 2023-09-19 08:43 | Oncology outpatient (recurring) (ONCR) | payer BC, SELFPAY ==
[2023-09-19 09:22] LABS: Basophils % 0.2 %; Eosinophils # 0.1 10^3/uL (0.0-0.8); Eosinophils % 1.7 %; Lymphocytes % 30.9 %; Mean Corpuscular Hemoglobin 31.3 pg (27-33); Mean Platelet Volume 9.8 fL (7.4-10.4); Monocytes # 0.5 10^3/uL (0.2-0.9); Monocytes % 7.8 %; Neutrophils # 3.82 10^3/uL (1.8-7.7); Neutrophils % 59.2 %; Nucleated Red Blood Cells % 0 %; Platelet Count 211 10^3/cmm (157-399); Red Blood Count 4.89 10^6/uL (3.85-5.65); Red Cell Distribution Width 13.3 % (12.1-15.1); White Blood Count 6.44 10^3/uL (3.29-11.43)
[2023-09-19 09:39] LABS: Alanine Aminotransferase 27 U/L (0-41); Albumin Level 3.8 g/dL (3.5-5.2); Alkaline Phosphatase 85 U/L (40-130); Anion Gap 14.3 (5-19); Aspartate Amino Transferase 24 U/L (0-40); Blood Urea Nitrogen 16 mg/dL (8-23); Calcium 8.6 mg/dL (8.5-10.5); Carbon Dioxide 25 mmol/L (22-29); Chloride 105 mmol/L (98-107); Globulin 3.2 g/dL (1.3-4.6); Glomerular Filtration Rate 61.1 mL/min (90-130); Glucose 98 mg/dL (65-115); Osmolality Calculated 291 mOsm/kg (285-295); Potassium 4.3 mmol/L (3.5-5.1); Sodium 140 mmol/L (136-145); Total Bilirubin 0.4 mg/dL (0.15-1.2)
[2023-09-19 12:04] LABS: Lactate Dehydrogenase 201 U/L (135-225)
== END 2023-09-26 23:59 | disposition home or self-care (01) ==
PROVIDERS: Internal Medicine; Nurse Practitioner Family; PCP Nurse Practitioner Family; Visit Provider Nurse Practitioner Family
DX: C83.31 Diffuse large B-cell lymphoma, lymph nodes of head, face, and neck (principal)
CPT/HCPCS: 36415; 80053; 83615; 85025

== ENCOUNTER 2023-11-13 06:49 | Outpatient (CLI) | payer BC, SELFPAY ==
--- NOTE | 2023-11-13 08:00 | CTR_ITS ---
PROCEDURE INFORMATION: Exam: CT Chest With Contrast; Diagnostic Exam date and time: 11/13/2023 8:16 AM Age: 63 years old Clinical indication: Condition or disease; Other: Follow up b-cell lymphoma; Follow-up oncological assessment; Additional info: Surveillance TECHNIQUE: Imaging protocol: Diagnostic computed tomography of the chest with contrast. Radiation optimization: All CT scans at this facility use at least one of these dose optimization techniques: automated exposure control; mA and/or kV adjustment per patient size (includes targeted exams where dose is matched to clinical indication); or iterative reconstruction. Contrast material: OMNIPAQUE; Contrast volume: 100 ml; Contrast route: INTRAVENOUS (IV); COMPARISON: CT chest abdpel w/*[id number] 09/17/2022 4:20 PM RADIATION DOSE METRICS: Total DLP (mGy-cm): 974.78 FINDINGS: Lungs: Stable appearance to micro nodules and calcifications at the right lung apex. No focal lung consolidation. Pleural spaces: No pneumothorax. No pleural effusion. Heart: No cardiomegaly. No pericardial effusion. Coronary arteries: Punctate coronary artery calcification. Mediastinal space: The visualized trachea and esophagus are unremarkable in appearance. Lymph nodes: Calcified right paratracheal mediastinal lymph node. No axillary or hilar lymphadenopathy. Vasculature: No thoracic aortic aneurysm or dissection. Bones/joints: No acute bony abnormality. Soft tissues: Stable left gynecomastia. PROCEDURE INFORMATION: Exam: CT Abdomen And Pelvis With Contrast Exam date and time: 11/13/2023 8:16 AM Age: 63 years old Clinical indication: Condition or disease; Other: Follow up b-cell lymphoma; Follow-up oncological assessment; Additional info: Surveillance TECHNIQUE: Imaging protocol: Computed tomography of the abdomen and pelvis with contrast. Radiation optimization: All CT scans at this facility use at least one of these dose optimization techniques: automated exposure control; mA and/or kV adjustment per patient size (includes targeted exams where dose is matched to clinical indication); or iterative reconstruction. Contrast material: OMNIPAQUE; Contrast volume: 100 ml; Contrast route: INTRAVENOUS (IV); COMPARISON: CT chest abdpel w/*[id number] 09/17/2022 4:20 PM RADIATION DOSE METRICS: Total DLP (mGy-cm): 974.78 FINDINGS: Liver: The liver is unremarkable in appearance. Gallbladder and bile ducts: Gallbladder unremarkable in appearance without radio-opaque stone. No intra or extrahepatic biliary ductal dilation. Pancreas: Normal. No ductal dilation. Spleen: Calcified splenic granulomas. Adrenal glands: Stable low-density nodularity to the bilateral adrenal glands which may represent the presence of adrenal adenomas. Kidneys and ureters: Kidneys and ureters are unremarkable in appearance. No hydronephrosis. No radio-opaque stone. Stable upper pole right renal cyst. Stomach and bowel: Scattered colonic diverticula. No evidence of bowel obstruction. Appendix: Appendix is normal. Intraperitoneal space: Unremarkable. No free air. No significant fluid collection. Vasculature: Calcified plaque is seen involving the abdominal aorta. Lymph nodes: No pelvic or abdominal lymphadenopathy. Urinary bladder: Bladder unremarkable. Reproductive: Prostate measures up to 3.4 cm. Bones/joints: No acute bony abnormality. Soft tissues: Umbilical hernia containing fat. CT/CT chest abdpel w/*[id number] IMPRESSION: 1. No focal lung consolidation. 2. No mediastinal, hilar or axillary lymphadenopathy. IMPRESSION: 1. No acute abdominal or pelvic pathology. 2. No abdominal or pelvic lymphadenopathy.
[2023-11-13 08:13] LABS: Blood Urea Nitrogen 15 mg/dL (8-23); Glomerular Filtration Rate 55.8 mL/min (90-130)
[2023-11-13] MEDS: iohexol 350 mg/mL 500 mL Btl (per mL) PO (08:14)
[2023-11-13] MEDS: iohexol 350 mg/mL 500 mL Btl (per mL) IV (08:22)
== END 2023-11-13 06:50 | disposition home or self-care (01) ==
LOC: RAD 06:49
PROVIDERS: PCP Nurse Practitioner Family; Visit Provider Nurse Practitioner Family
DX: C83.31 Diffuse large B-cell lymphoma, lymph nodes of head, face, and neck (principal)
CPT/HCPCS: 71260; 74177; 82565; 84520; Q9967

== ENCOUNTER 2024-10-23 08:24 | Oncology outpatient (recurring) (ONCR) | payer BC, SELFPAY ==
[2024-10-23 09:16] LABS: Basophils % 0.2 %; Eosinophils # 0.1 10^3/uL (0.0-0.8); Eosinophils % 1.7 %; Hematocrit 46.8 % (37-53); Lymphocytes # 1.7 10^3/uL (0.8-4.8); Lymphocytes % 26.4 %; Mean Corpuscular HGB Conc 33.3 g/dL (30-55); Mean Corpuscular Hemoglobin 30.4 pg (27-33); Mean Corpuscular Volume 91.1 fl (82-101); Mean Platelet Volume 9.4 fL (7.4-10.4); Monocytes # 0.4 10^3/uL (0.2-0.9); Monocytes % 6.1 %; Neutrophils # 4.16 10^3/uL (1.8-7.7); Neutrophils % 65.1 %; Nucleated Red Blood Cells % 0 %; Platelet Count 205 10^3/cmm (157-399); Red Blood Count 5.14 10^6/uL (3.85-5.65); White Blood Count 6.39 10^3/uL (3.29-11.43)
[2024-10-23 09:32] LABS: Alanine Aminotransferase 17 U/L (0-41); Albumin Level 3.8 g/dL (3.5-5.2); Alkaline Phosphatase 90 U/L (40-130); Aspartate Amino Transferase 18 U/L (0-40); Blood Urea Nitrogen 21 mg/dL (8-23); Carbon Dioxide 26 mmol/L (22-29); Chloride 103 mmol/L (98-107); Globulin 3.2 g/dL (1.3-4.6); Glomerular Filtration Rate 75.2 mL/min (90-130); Glucose 138 mg/dL (65-115); Lactate Dehydrogenase 198 U/L (135-225); Osmolality Calculated 293 mOsm/kg (285-295); Sodium 139 mmol/L (136-145); Total Bilirubin 0.3 mg/dL (0.15-1.2)
== END 2024-10-26 23:59 | disposition home or self-care (01) ==
LOC: ONCMED 08:25
PROVIDERS: Nurse Practitioner; PCP Nurse Practitioner Family; Visit Provider Nurse Practitioner Family
DX: C83.31 Diffuse large B-cell lymphoma, lymph nodes of head, face, and neck (principal)
CPT/HCPCS: 36415; 80053; 83615; 85025